=== PATIENT | male | born 1995 | race African-American/Black ===

== ENCOUNTER 2017-11-11 00:21 | Emergency (ER) | payer OTHER ==
[2017-11-11 00:38] VITALS: RESP 16
--- NOTE | 2017-11-11 01:16 | ED ---
Headache HPI - General Chief Complaint: Headache Stated Complaint: headache,high BP Time Seen by Provider: 11/11/17 00:50 Mode of arrival: ambulatory Limitations: no limitations - History of Present Illness Initial Comments: 22-year-old male patient presents to the emergency department today with complaints of intermittent headaches and fatigue. Patient states that this is been going on for the last few months. States that he usually feels this way when his blood pressure is high. He states that he stopped taking his blood pressure medicine around the end of July due to issues with getting his prescriptions. Patient denies checking his blood pressure at home. States he currently is feeling well does have a mild headache rated at a 3 out of 10 on the pain scale. He denies any blurred vision, double vision, numbness, tingling , or weakness with this. Patient states he did call into work and will need a work note. Patient denies any recent rash, fever, chills, shortness breath, chest pain, abdominal pain, nausea, vomiting, diarrhea, constipation, back pain , hematuria, dysuria, urinary urgency, urinary frequency, or any other complaints. - Related Data Previous Rx's Medication Instructions Recorded Albuterol Inhaler [Ventolin Hfa 1 - 2 puff INHALATION Q4-6H PRN #1 04/09/15 Inhaler] inhaler Albuterol Inhaler [Ventolin Hfa 1 - 2 puff INHALATION Q4-6H PRN #1 06/11/15 Inhaler] inhaler Albuterol Nebulized [Ventolin 2.5 mg INHALATION Q4H #20 nebu 06/11/15 Nebulized] predniSONE 20 mg PO BID #10 tab 06/11/15 Lisinopril [Prinivil] 5 mg PO DAILY #20 tablet 11/11/17 Allergies Allergy/AdvReac Type Severity Reaction Status Date / Time grass pollen-perennial rye, Allergy Rash/Hives Verified 06/11/15 16:03 standar [grass poll-perennial rye,std] Review of Systems ROS Statement: Those systems with pertinent positive or pertinent negative responses have been documented in the HPI. ROS Other: All systems not noted in ROS Statement are negative. Past Medical History Past Medical History: Asthma History of Any Multi-Drug Resistant Organisms: None Reported Past Surgical History: No Surgical Hx Reported Past Psychological History: Bipolar Smoking Status: Current some day smoker Past Alcohol Use History: None Reported Past Drug Use History: None Reported, Marijuana General Exam Limitations: no limitations General appearance: alert, in no apparent distress, other (This is a well- developed, well-nourished adult male patient in no acute distress. Vital signs upon presentation are temperature 97.6F, pulse 61, respirations 16, blood pressure 130/96, pulse ox 100% on room air.) Eye exam: Present: normal appearance, PERRL, EOMI. Absent: scleral icterus, conjunctival injection, periorbital swelling ENT exam: Present: normal exam, normal oropharynx, mucous membranes moist Respiratory exam: Present: normal lung sounds bilaterally. Absent: respiratory distress, wheezes, rales, rhonchi, stridor Cardiovascular Exam: Present: regular rate, normal rhythm, normal heart sounds. Absent: systolic murmur, diastolic murmur, rubs, gallop, clicks GI/Abdominal exam: Present: soft, normal bowel sounds. Absent: distended, tenderness, guarding, rebound, rigid Neurological exam: Present: alert, oriented X3, CN II-XII intact Psychiatric exam: Present: normal affect, normal mood Skin exam: Present: warm, dry, intact, normal color. Absent: rash Course Vital Signs 11/11/17 11/11/17 00:33 01:29 Temperature 97.6 F 97.9 F Pulse Rate 61 69 Respiratory 16 16 Rate Blood Pressure 130/96 133/78 O2 Sat by Pulse 100 100 Oximetry Medical Decision Making - Medical Decision Making 22-year-old male patient percents to the emergency department today for evaluation of headaches and fatigue for the last 2 months. Patient did stop taking his blood pressure medication at the end of July. Reports that he usually feels this way and his blood pressure is high. Blood pressure in the department today was in the 130s over 90s. Patient reported he did take lisinopril. States he does have an appointment with his primary care physician at the beginning of November, but did call in to work today so we need a work note. He currently states his headache is much improved at a 3 out of 10 on a pain scale. He is feeling better. We will give him a prescription for his lisinopril. He is instructed to take this and to follow-up with his primary care physician as he has planned. He is instructed to return here immediately for any new, worsening, or concerning symptoms. He verbalizes understanding and agrees with this plan. Disposition Clinical Impression: Headache Disposition: HOME SELF-CARE Condition: Good Instructions: Acute Headache (ED), Hypertension (ED) Additional Instructions: Take medications as directed. Keep your appointment with your primary care physician as you have planned. Return here immediately for any new, worsening, or concerning symptoms. Prescriptions: Lisinopril [Prinivil] 5 mg PO DAILY #20 tablet Is patient prescribed a controlled substance at discharge?: No Referrals: None,Stated [Primary Care Provider] - 1-2 days Time of Disposition: 01:15
[2017-11-11 01:30] VITALS: BP 133/78; PULSE 69; TEMP 97.9
== END 2017-11-11 01:29 | disposition home or self-care (01) ==
LOC: EC 00:21
DX: R51 Headache (principal); R53.83 Other fatigue; F17.200 Nicotine dependence, unspecified, uncomplicated; Z91.048 Other nonmedicinal substance allergy status
CPT/HCPCS: 99283

== ENCOUNTER 2023-07-18 07:55 | Emergency (ER) | payer OTHER ==
[2023-07-18] MEDS ORDERED: ONDANSETRON 4 MG/2 ML VIAL IVP STA (08:07)
[2023-07-18] MEDS ORDERED: methylPREDNISolone SOD SUCCI 125 MG/2 ML VIAL IV STA (08:07)
[2023-07-18] MEDS ORDERED: hydrALAZINE HCL 20 MG/ML 1 ML VIAL IVP STA (08:08)
[2023-07-18] MEDS ORDERED: SODIUM CHLORIDE 0.9% 1,000 ML IV ONE (08:08)
[2023-07-18 08:20] VITALS: TEMP 98.3
--- NOTE | 2023-07-18 08:20 | ED ---
General Adult HPI - General Chief complaint: Shortness of Breath Stated complaint: RUSH Time Seen by Provider: 07/18/23 08:00 Source: patient, RN notes reviewed, old records reviewed Mode of arrival: ambulatory Limitations: no limitations - History of Present Illness Initial comments: This is a 27-year-old male who has a past medical history significant for asthma. Patient states it started last night at 8:00 got worse after he went out partying. Patient states he smokes marijuana every day. Patient states he also has high blood pressure but did not take his medications. patient tried 3 breathing treatments at home and then called the ambulance. Patient received a breathing treatment in the ambulance. Patient states she is feeling better. Patient states is a little hung over from drinking too much last night. Patient denies any chest pain. Patient denies any fever chills per patient denies any abdominal pain. - Related Data Previous Rx's Medication Instructions Recorded Albuterol Inhaler [Ventolin Hfa 1 - 2 puff INHALATION Q4-6H PRN #1 04/09/15 Inhaler] inhaler Albuterol Inhaler [Ventolin Hfa 1 - 2 puff INHALATION Q4-6H PRN #1 06/11/15 Inhaler] inhaler Albuterol Nebulized [Ventolin 2.5 mg INHALATION Q4H #20 nebu 06/11/15 Nebulized] predniSONE [Deltasone] 20 mg PO BID #10 tab 06/11/15 lisinopriL [Prinivil] 5 mg PO DAILY #20 tablet 11/11/17 Albuterol Inhaler [Ventolin Hfa 2 puff INHALATION RT-QID #18 gm 07/18/23 Inhaler] Ondansetron [Zofran] 4 mg PO Q8HR PRN #10 tab 07/18/23 lisinopriL [Zestril] 10 mg PO DAILY #30 tab 07/18/23 predniSONE [Deltasone] 40 mg PO DAILY #8 tab 07/18/23 Allergies Allergy/AdvReac Type Severity Reaction Status Date / Time grass pollen-perennial rye, Allergy Rash/Hives Verified 07/18/23 08:05 standar [grass poll-perennial rye,std] Review of Systems ROS Statement: Those systems with pertinent positive or pertinent negative responses have been documented in the HPI. ROS Other: All systems not noted in ROS Statement are negative. Past Medical History Past Medical History: Asthma History of Any Multi-Drug Resistant Organisms: None Reported Past Surgical History: No Surgical Hx Reported Past Psychological History: Bipolar Smoking Status: Current every day smoker Past Alcohol Use History: None Reported Past Drug Use History: None Reported, Marijuana General Exam - General Exam Comments Initial Comments: GENERAL: Patient is well-developed and well-nourished. Patient is nontoxic and well- hydrated and is in mild distress. ENT: Neck is soft and supple. No significant lymphadenopathy is noted. Oropharynx is clear. Moist mucous membranes. Neck has full range of motion without eliciting any pain. EYES: The sclera were anicteric and conjunctiva were pink and moist. Extraocular movements were intact and pupils were equal round and reactive to light. Eyelids were unremarkable. PULMONARY: Patient some expiratory wheezing. CARDIOVASCULAR: There is a regular rate and rhythm without any murmurs gallops or rubs. Femoral pulses are equal bilaterally ABDOMEN: Soft and nontender with normal bowel sounds. SKIN: Skin is clear with no lesions or rashes and otherwise unremarkable. NEUROLOGIC: Patient is alert and oriented x3. Cranial nerves II through XII are grossly intact. Motor and sensory are also intact. Normal speech, volume and content. Symmetrical smile. MUSCULOSKELETAL: Normal extremities with adequate strength and full range of motion. LYMPHATICS: No significant lymphadenopathy is noted PSYCHIATRIC: Normal psychiatric evaluation. Limitations: no limitations Course Vital Signs 07/18/23 07/18/23 07/18/23 07:57 08:53 08:56 Temperature 98.3 F Pulse Rate 103 H 110 H 100 Respiratory 20 24 Rate Blood Pressure 172/125 163/95 O2 Sat by Pulse 100 98 Oximetry 07/18/23 07/18/23 07/18/23 09:06 09:11 09:37 Temperature Pulse Rate 100 100 115 H Respiratory 24 Rate Blood Pressure 168/97 O2 Sat by Pulse 97 Oximetry Medical Decision Making - Medical Decision Making EKG is interpreted by myself. EKG shows sinus tachycardia at 104 bpm KS interval 236 dresses 86 QT interval 345 QTC is 405. Patient's EKG shows normal depression. Was pt. sent in by a medical professional or institution (, PA, ROUGE PRESSER, urgent care, hospital, or custodial...) When possible be specific @ -No Did you speak to anyone other than the patient for history (EMS, parent, family, police, friend...)? What history was obtained from this source @ -No Did you review nursing and triage notes (agree or disagree)? Why? @ -I reviewed and agree with nursing and triage notes Were old charts reviewed (outside hosp., previous admission, EMS record, old EKG, old radiological studies, urgent care reports/EKG's, custodial records)? Report findings @ -No old charts were reviewed Differential Diagnosis (chest pain, altered mental status, abdominal pain women, abdominal pain men, vaginal bleeding, weakness, fever, dyspnea, syncope, headache, dizziness, GI bleed, back pain, seizure, CVA, palpatations, mental health, musculoskeletal)? @ -Differential Dyspnea: Coronary syndrome, arrhythmia, tamponade, asthma, COPD, pulmonary embolism, pneumonia, pneumothorax, pulmonary effusion, anaphylaxis, diabetic ketoacidosis, flailed chest, pulmonary contusion, diaphragmatic rupture, anemia, neuromuscular, this is not meant to be an all-inclusive list. EKG interpreted by me (3pts min.). @ -As above X-rays interpreted by me (1pt min.). @ -Chest x-ray showed no acute abnormality. CT interpreted by me (1pt min.). @ -None done U/S interpreted by me (1pt. min.). @ -None done What testing was considered but not performed or refused? (CT, X-rays, U/S, labs)? Why? @ -None What meds were considered but not given or refused? Why? @ -None Did you discuss the management of the patient with other professionals (professionals i.e. , PA, ROUGE PRESSER, lab, RT, psych nurse, social media sr strategy manager, student union consultant, teacher, juvenile officer, case packer)? Give summary @ -No Was smoking cessation discussed for >3mins.? @ -No Was critical care preformed (if so, how long)? @ -No Were there social determinants of health that impacted care today? How? (Homelessness, low income, unemployed, alcoholism, drug addiction, tra nsportation, low edu. Level, literacy, decrease access to med. care, [place] [facility], rehab)? @ -No Was there de-escalation of care discussed even if they declined (Discuss DNR or withdrawal of care, Hospice)? DNR status @ -No What co-morbidities impacted this encounter? (DM, HTN, Smoking, COPD, CAD, Cancer, CVA, ARF, Chemo, Hep., AIDS, mental health diagnosis, sleep apnea, morbid obesity)? @ -None Was patient admitted / discharged? Hospital course, mention meds given and route, prescriptions, significant lab abnormalities, going to OR and other pertinent info. @ -Patient came in and was wheezing quite a bit. Patient received a couple breathing treatments here as well as steroids. Patient also was nauseous because he drank too much last night and vomited a couple of times I gave the patient Zofran and Reglan eventually and fluid through the IV. I went back into reexamine the patient after he had his breathing treatments and fluid and antiemetics. Patient was sleeping when I woke him up he stated he felt much better and wanted to go home. I listened to his lungs he was still having a little expiratory wheeze but much improved compared to earlier. Patient was oxygenating 96% when I was talking to him. Undiagnosed new problem with uncertain prognosis? @ -No Drug Therapy requiring intensive monitoring for toxicity (Heparin, Nitro, Insulin, Cardizem)? @ -No Were any procedures done? @ -No Diagnosis/symptom? @ -Exacerbation of asthma Acute, or Chronic, or Acute on Chronic? @ -Acute Uncomplicated (without systemic symptoms) or Complicated (systemic symptoms)? @ -Complicated Side effects of treatment? @ -No Exacerbation, Progression, or Severe Exacerbation? @ -No Poses a threat to life or bodily function? How? (Chest pain, USA, [place], pneumonia, PE, COPD, DKA, ARF, appy, cholecystitis, CVA, Diverticulitis, Homicidal, Suicidal, threat to staff... and all critical care pts) @ -No Diagnosis/symptom? @ -Acute vomiting Acute, or Chronic, or Acute on Chronic? @ -Acute Uncomplicated (without systemic symptoms) or Complicated (systemic symptoms)? @ -Complicated Side effects of treatment? @ -none Exacerbation, Progression, or Severe Exacerbation] @ -no Poses a threat to life or bodily function? @ -no - Lab Data Result diagrams: 07/18/23 08:27 07/18/23 08:27 Lab Results 07/18/23 07/18/23 Range/Units 08:27 08:27 WBC 18.0 H (3.8-10.6) k/uL RBC 4.80 (4.30-5.90) m/uL Hgb 14.4 (13.0-17.5) gm/dL Hct 43.5 (39.0-53.0) % MCV 90.7 (80.0-100.0) fL MCH 29.9 (25.0-35.0) pg MCHC 33.0 (31.0-37.0) g/dL RDW 13.8 (11.5-15.5) % Plt Count 225 (150-450) k/uL MPV 8.0 Neutrophils % 69 % Lymphocytes % 15 % Monocytes % 6 % Eosinophils % 8 % Basophils % 0 % Neutrophils # 12.5 H (1.3-7.7) k/uL Lymphocytes # 2.7 (1.0-4.8) k/uL Monocytes # 1.1 H (0-1.0) k/uL Eosinophils # 1.4 H (0-0.7) k/uL Basophils # 0.1 (0-0.2) k/uL Sodium 143 (137-145) mmol/L Potassium 3.6 (3.5-5.1) mmol/L Chloride 101 (98-107) mmol/L Carbon Dioxide 27 (22-30) mmol/L Anion Gap 15 mmol/L BUN 17 (9-20) mg/dL Creatinine 0.78 (0.66-1.25) mg/dL Est GFR (CKD-EPI)AfAm >90 (>60 ml/min/1.73 sqM) Est GFR (CKD-EPI)NonAf >90 (>60 ml/min/1.73 sqM) Glucose 97 (74-99) mg/dL Calcium 9.2 (8.4-10.2) mg/dL Magnesium 1.8 (1.6-2.3) mg/dL Total Bilirubin 0.5 (0.2-1.3) mg/dL AST 45 (17-59) U/L ALT 43 (4-49) U/L Alkaline Phosphatase 89 (38-126) U/L Total Protein 8.4 H (6.3-8.2) g/dL Albumin 4.6 (3.5-5.0) g/dL Disposition Clinical Impression: Exacerbation of asthma, Hangover effect Disposition: HOME SELF-CARE Condition: Good Instructions (If sedation given, give patient instructions): Asthma (ED) Prescriptions: predniSONE [Deltasone] 40 mg PO DAILY #8 tab Albuterol Inhaler [Ventolin Hfa Inhaler] 2 puff INHALATION RT-QID #18 gm lisinopriL [Zestril] 10 mg PO DAILY #30 tab Ondansetron [Zofran] 4 mg PO Q8HR PRN #10 tab PRN Reason: Nausea Is patient prescribed a controlled substance at d/c from ED?: No Referrals: None,Stated [Primary Care Provider] - 1-2 days Time of Disposition: 10:48
[2023-07-18] MEDS ORDERED: IPRATROPIUM-ALBUTEROL 3 ML NEB INHALATION STA ×2 (08:50→08:51)
[2023-07-18 08:55] LABS: Basophils # (A) 0.1 k/uL (0-0.2); Basophils % (A) 0 %; Eosinophils # (A) 1.4 k/uL (0-0.7); Eosinophils % (A) 8 %; HCT 43.5 % (39.0-53.0); HGB 14.4 gm/dL (13.0-17.5); Lymphocytes # (A) 2.7 k/uL (1.0-4.8); Lymphocytes % (A) 15 %; MCH 29.9 pg (25.0-35.0); MCV 90.7 fL (80.0-100.0); Monocytes # (A) 1.1 k/uL (0-1.0); Monocytes % (A) 6 %; Neutrophils # (A) 12.5 k/uL (1.3-7.7); Neutrophils % (A) 69 %; Platelet Count 225 k/uL (150-450); RDW 13.8 % (11.5-15.5)
--- NOTE | 2023-07-18 09:04 | XR ---
EXAMINATION TYPE: XR chest 2V DATE OF EXAM: 07/18/2023 8:46 AM CLINICAL INDICATION:Male, 27 years old with history of Difficulty breathing ; [facility] COMPARISON: Chest radiographs from 06/11/2015 TECHNIQUE: XR chest 2V Frontal and lateral views of the chest. FINDINGS: Lungs/Pleura: There is no evidence of pleural effusion, focal consolidation, or pneumothorax. Pulmonary vascularity: Unremarkable. Heart/mediastinum: Cardiomediastinal silhouette is unremarkable. Musculoskeletal: No acute osseous pathology. IMPRESSION: No acute cardiopulmonary disease/process.
[2023-07-18 09:29] VITALS: RESP 24
[2023-07-18] MEDS ORDERED: METOCLOPRAMIDE 5 MG/ML 2 ML VIAL IVP STA (09:36)
[2023-07-18 10:23] LABS: ALT 43 U/L (4-49); AST 45 U/L (17-59); African American GFR (CKD) >90 (>60 ml/min/1.73 sqM); Albumin 4.6 g/dL (3.5-5.0); Alkaline Phosphatase 89 U/L (38-126); Anion Gap 15 mmol/L; Blood Urea Nitrogen 17 mg/dL (9-20); Calcium 9.2 mg/dL (8.4-10.2); Carbon Dioxide 27 mmol/L (22-30); Chloride 101 mmol/L (98-107); Glucose 97 mg/dL (74-99); Magnesium 1.8 mg/dL (1.6-2.3); Non-African American GFR(CKD) >90 (>60 ml/min/1.73 sqM); Potassium 3.6 mmol/L (3.5-5.1); Sodium 143 mmol/L (137-145); Total Bilirubin 0.5 mg/dL (0.2-1.3); Total Protein 8.4 g/dL (6.3-8.2)
[2023-07-18] MEDS ORDERED: ENALAPRILAT 1.25 MG/ML 1 ML VIAL IVP STA (10:52)
[2023-07-18 11:00] VITALS: BP 156/88; PULSE 110
== END 2023-07-18 11:18 | disposition home or self-care (01) ==
LOC: EC 07:55
DX: J45.901 Unspecified asthma with (acute) exacerbation (principal); F10.129 Alcohol abuse with intoxication, unspecified; R00.0 Tachycardia, unspecified; F17.200 Nicotine dependence, unspecified, uncomplicated; Z79.899 Other long term (current) drug therapy; Z86.59 Personal history of other mental and behavioral disorders; Z88.8 Allergy status to other drugs, medicaments and biological substances
CPT/HCPCS: 36415; 94640 ×2; 93005; 80053; 83735; 85025; 71046; 99285; 96374; 96375 ×3; 96361; J0360; J2765; J2930; J2405

== ENCOUNTER 2023-07-18 23:25 | Observation (INO) | payer OTHER ==
[2023-07-19] MEDS ORDERED: ALBUTEROL HFA INHALER INHALATION STA (00:01)
[2023-07-19] MEDS ORDERED: IPRATROPIUM-ALBUTEROL 3 ML NEB INHALATION STA (00:50)
[2023-07-19] MEDS ORDERED: ALBUTEROL NEBULIZED 2.5 MG/3 ML INHALATION STA (00:50)
[2023-07-19] MEDS ORDERED: SODIUM CHLORIDE 0.9% 1,000 ML IV ONE (00:53)
--- NOTE | 2023-07-19 02:24 | ED ---
General Adult HPI - General Chief complaint: Shortness of Breath Stated complaint: RUSH Time Seen by Provider: 07/18/23 23:29 Source: EMS Mode of arrival: EMS Limitations: no limitations - History of Present Illness Initial comments: 27-year-old male presenting to the ED with a chief complaint of dyspnea. Patient previously here earlier with asthma exacerbation. After receiving steroids and breathing treatments, patient reported that he felt well and was discharged home. Patient noted at home has no nebulizer or inhaler. Patient presenting to the ED due to recurrence of asthma exacerbation. Denies chest pain or and no abdominal pain. No other symptoms. - Related Data Previous Rx's Medication Instructions Recorded Albuterol Inhaler [Ventolin Hfa 1 - 2 puff INHALATION Q4-6H PRN #1 04/09/15 Inhaler] inhaler Albuterol Inhaler [Ventolin Hfa 1 - 2 puff INHALATION Q4-6H PRN #1 06/11/15 Inhaler] inhaler Albuterol Nebulized [Ventolin 2.5 mg INHALATION Q4H #20 nebu 06/11/15 Nebulized] predniSONE [Deltasone] 20 mg PO BID #10 tab 06/11/15 lisinopriL [Prinivil] 5 mg PO DAILY #20 tablet 11/11/17 Albuterol Inhaler [Ventolin Hfa 2 puff INHALATION RT-QID #18 gm 07/18/23 Inhaler] Ondansetron [Zofran] 4 mg PO Q8HR PRN #10 tab 07/18/23 lisinopriL [Zestril] 10 mg PO DAILY #30 tab 07/18/23 predniSONE [Deltasone] 40 mg PO DAILY #8 tab 07/18/23 Allergies Allergy/AdvReac Type Severity Reaction Status Date / Time grass pollen-perennial rye, Allergy Rash/Hives Verified 07/18/23 08:05 standar [grass poll-perennial rye,std] Review of Systems ROS Statement: Those systems with pertinent positive or pertinent negative responses have been documented in the HPI. ROS Other: All systems not noted in ROS Statement are negative. Past Medical History Past Medical History: Asthma, Hypertension History of Any Multi-Drug Resistant Organisms: None Reported Past Surgical History: No Surgical Hx Reported Past Psychological History: Bipolar Smoking Status: Current every day smoker Past Alcohol Use History: None Reported, Rare Past Drug Use History: None Reported, Marijuana General Exam Limitations: no limitations General appearance: alert, in distress Respiratory exam: Present: wheezes, accessory muscle use, other (Tachypnea) Cardiovascular Exam: Present: tachycardia GI/Abdominal exam: Present: soft Neurological exam: Present: alert, oriented X3 Skin exam: Present: warm, dry Course Vital Signs 07/18/23 07/18/23 07/19/23 23:26 23:31 00:18 Temperature 98.1 F Pulse Rate 120 H 106 H Respiratory 26 H 26 H 22 Rate Blood Pressure 161/103 140/92 O2 Sat by Pulse 97 97 Oximetry 07/19/23 07/19/23 07/19/23 00:57 01:25 01:40 Temperature 98.5 F Pulse Rate 109 H 111 H 121 H Respiratory 22 Rate Blood Pressure 127/91 O2 Sat by Pulse 93 L Oximetry Medical Decision Making - Medical Decision Making Was pt. sent in by a medical professional or institution (, PA, CARROTING MACHINE OFFBEARER, urgent care, hospital, or usp...) When possible be specific @ -No Did you speak to anyone other than the patient for history (EMS, parent, family, police, friend...)? What history was obtained from this source @ -No Did you review nursing and triage notes (agree or disagree)? Why? @ -I reviewed and agree with nursing and triage notes Were old charts reviewed (outside hosp., previous admission, EMS record, old EKG, old radiological studies, urgent care reports/EKG's, usp records)? Report findings @ -Prior visit reviewed today. For further details please see HPI. Differential Diagnosis (chest pain, altered mental status, abdominal pain women, abdominal pain men, vaginal bleeding, weakness, fever, dyspnea, syncope, headache, dizziness, GI bleed, back pain, seizure, CVA, palpatations, mental health, musculoskeletal)? @ -Differential Dyspnea: Coronary syndrome, arrhythmia, tamponade, asthma, COPD, pulmonary embolism, pneumonia, pneumothorax, pulmonary effusion, anaphylaxis, diabetic ketoacidosis, flailed chest, pulmonary contusion, diaphragmatic rupture, anemia, neuromuscular, this is not meant to be an all-inclusive list. EKG interpreted by me (3pts min.). @ -None X-rays interpreted by me (1pt min.). @ -Repeat chest x-ray ordered however at this time is pending. CT interpreted by me (1pt min.). @ -None done U/S interpreted by me (1pt. min.). @ -None done What testing was considered but not performed or refused? (CT, X-rays, U/S, labs)? Why? @ -None What meds were considered but not given or refused? Why? @ -None Did you discuss the management of the patient with other professionals (professionals i.e. DrFarzad, PA, CARROTING MACHINE OFFBEARER, lab, RT, psych nurse, marriage and family social worker, body presser, teacher, radiological defense officer, sample case porter)? Give summary @ -Case discussed with Dr. Law, who accepted admission Was smoking cessation discussed for >3mins.? @ -No Was critical care preformed (if so, how long)? @ -No Were there social determinants of health that impacted care today? How? (Homelessness, low income, unemployed, alcoholism, drug addiction, transportation, low edu. Level, literacy, decrease access to med. care, custodial, rehab)? @ -No Was there de-escalation of care discussed even if they declined (Discuss DNR or withdrawal of care, Hospice)? DNR status @ -No What co-morbidities impacted this encounter? (DM, HTN, Smoking, COPD, CAD, Cancer, CVA, ARF, Chemo, Hep., AIDS, mental health diagnosis, sleep apnea, morbid obesity)? @ -Asthma Was patient admitted / discharged? Hospital course, mention meds given and route, prescriptions, significant lab abnormalities, going to OR and other pertinent info. @ -Admission 27-year-old male seen here. Obviously today for asthma exacerbation presenting again with recurrence of asthma exacerbation. Despite multiple breathing treatments here in the ED, patient continues to have significant respiratory distress and is noted to be hypoxic in the low 90s while on room air. Secondary to this, patient will be admitted. At this time laboratory studies and repeat chest x-ray are pending. Placed on supplemental oxygen in the ED. Currently on 1 L with improvement of SpO2 to 95%. Undiagnosed new problem with uncertain prognosis? @ -No Drug Therapy requiring intensive monitoring for toxicity (Heparin, Nitro, Insulin, Cardizem)? @ -No Were any procedures done? @ -No Diagnosis/symptom? @ -Asthma exacerbation Acute, or Chronic, or Acute on Chronic? @ -Acute Uncomplicated (without systemic symptoms) or Complicated (systemic symptoms)? @ -Complicated Side effects of treatment? @ -No Exacerbation, Progression, or Severe Exacerbation? @ -Severe exacerbation Poses a threat to life or bodily function? How? (Chest pain, [place], [place], pneumonia, PE, COPD, DKA, ARF, appy, cholecystitis, CVA, Diverticulitis, Homicidal, Suicidal, threat to staff... and all critical care pts) @ -Yes, asthma exacerbation with respiratory distress and hypoxia Disposition Clinical Impression: Asthma exacerbation Disposition: ADMITTED IP TO THIS HOSP Referrals: None,Stated [Primary Care Provider] - 1-2 days Time of Disposition: 02:29
[2023-07-19] MEDS ORDERED: NALOXONE 0.4 MG/ML 1 ML VIAL IVP PRN (02:31)
[2023-07-19] MEDS ORDERED: IPRATROPIUM-ALBUTEROL 3 ML NEB INHALATION PRN (02:31)
[2023-07-19] MEDS ORDERED: ALBUTEROL NEBULIZED 2.5 MG/3 ML INHALATION PRN (02:34)
[2023-07-19] MEDS ORDERED: MORPHINE SULFATE 4 MG/ML SYRINGE IV PRN (02:36)
[2023-07-19] MEDS ORDERED: KETOROLAC 15 MG/ML 1 ML VIAL IVP PRN (02:36)
[2023-07-19] MEDS ORDERED: ACETAMINOPHEN TAB 325 MG TAB PO PRN (02:36)
[2023-07-19] MEDS: SODIUM CHLORIDE 0.9% 1,000 ML IV SCH ×2 (02:56→16:12)
[2023-07-19 02:59] LABS: VBG PH 7.44 (7.31-7.41)
[2023-07-19 02:59] LABS: Basophils % (A) 0 %; Eosinophils # (A) 0.2 k/uL (0-0.7); Eosinophils % (A) 1 %; HCT 38.8 % (39.0-53.0); Lymphocytes # (A) 1.2 k/uL (1.0-4.8); Lymphocytes % (A) 8 %; MCHC 33.5 g/dL (31.0-37.0); MCV 89.6 fL (80.0-100.0); Mean Platelet Volume 8.1; Monocytes # (A) 0.4 k/uL (0-1.0); Monocytes % (A) 3 %; Neutrophils # (A) 12.8 k/uL (1.3-7.7); Neutrophils % (A) 88 %; Platelet Count 228 k/uL (150-450); RBC 4.32 m/uL (4.30-5.90); RDW 13.9 % (11.5-15.5); WBC 14.6 k/uL (3.8-10.6)
[2023-07-19 03:17] LABS: ALT 33 U/L (4-49); African American GFR (CKD) >90 (>60 ml/min/1.73 sqM); Anion Gap 12 mmol/L; Blood Urea Nitrogen 15 mg/dL (9-20); Calcium 8.8 mg/dL (8.4-10.2); Carbon Dioxide 19 mmol/L (22-30); Chloride 105 mmol/L (98-107); Glucose 133 mg/dL (74-99); Non-African American GFR(CKD) >90 (>60 ml/min/1.73 sqM); Sodium 136 mmol/L (137-145); Total Bilirubin 0.7 mg/dL (0.2-1.3)
[2023-07-19 03:35] LABS: AST 41 U/L (17-59); Albumin 4.3 g/dL (3.5-5.0); Alkaline Phosphatase 69 U/L (38-126); Potassium 4.6 mmol/L (3.5-5.1); Total Protein 7.8 g/dL (6.3-8.2)
--- NOTE | 2023-07-19 04:01 | XR ---
EXAM: XR Chest, 2 Views CLINICAL HISTORY: difficulty breathing TECHNIQUE: Frontal and lateral views of the chest. COMPARISON: No relevant prior studies available. FINDINGS: Lungs: Unremarkable. No infiltration, atelectasis or mass density. Pleural space: Unremarkable. No pneumothorax. No pleural fluid. Heart: Unremarkable. No cardiomegaly. Mediastinum: Unremarkable. Normal mediastinal contour. Bones/joints: Unremarkable. No acute abnormalities. IMPRESSION: Negative chest x-rays.
--- NOTE | 2023-07-19 04:12 | P.HPIM ---
History of Present Illness H&P Date: 07/19/23 Chief Complaint: Shortness of breath 27-year-old male with hypertension, moderate persistent asthma Patient coming in with sudden onset shortness of breath started Wednesday morning for which he came in to the ED he received some breathing treatments started feeling better and then was sent home initially. He comes back tonight complaining of recurrent episodes of shortness of breath and wheezing he claims that his home inhalers are not helping denies any fevers chills denies any sore throat coughing denies any runny nose denies any muscle aches and IV no sick contacts denies any recent travel her hospital stay. He cannot recognize to trigger or his asthma attack. Patient admits to smoking marijuana denies tobacco smoking denies smoke exposure. Denies recent travel her hospital stay denies any history of blood clots In the ED he received some breathing treatments however he continued to be hypoxic and having some shortness of breath for which he was admitted for further care review of systems Pertinent positives as noted in HPI. All other systems were reviewed and are negative on exam Constitutional: No acute distress, conversant, pleasant Eyes: Anicteric sclerae, moist conjunctiva, Pupils equal round reactive to light ENMT: NC/AT Oropharynx clear, no erythema, or exudates Neck: Supple, no masses, or JVD No carotid bruits No thyromegaly Lungs: Decreased breath sounds with prolonged expiratory phase and wheezing Clear to percussion Normal respiratory effort, no accessory muscle use Cardiovascular: Heart regular in rate and rhythm, No murmurs, gallops, or rubs No peripheral edema Abdominal: Soft Nontender, no guarding, rebound or rigidity Abdomen moving with respiration Normoactive bowel sounds No hepatomegaly, No splenomegaly No palpable mass No abdominal wall hernia noted . Extremities: No digital cyanosis No clubbing Pedal pulses intact and symmetrical Radial pulses intact and symmetrical No calf tenderness Psychiatric: Alert and oriented to person, place and time Appropriate affect fair judgement Neuro Muscles Strength 5/5 in all 4 extremities Sensation to light touch grossly present throughout Cranial nerves II-XII grossly intact Lymphatics: no palpable cervical or supraclavicular lymph nodes Past Medical History Past Medical History: Asthma, Hypertension History of Any Multi-Drug Resistant Organisms: None Reported Past Surgical History: No Surgical Hx Reported Past Psychological History: Bipolar Smoking Status: Current every day smoker Past Alcohol Use History: None Reported, Rare Past Drug Use History: None Reported, Marijuana Medications and Allergies Home Medications Medication Instructions Recorded Confirmed Type Albuterol Inhaler [Ventolin Hfa 1 - 2 puff INHALATION Q4-6H PRN #1 04/09/15 06/11/15 Rx Inhaler] inhaler Albuterol Inhaler [Ventolin Hfa 1 - 2 puff INHALATION Q4-6H PRN #1 06/11/15 Rx Inhaler] inhaler Albuterol Nebulized [Ventolin 2.5 mg INHALATION Q4H #20 nebu 06/11/15 Rx Nebulized] predniSONE [Deltasone] 20 mg PO BID #10 tab 06/11/15 Rx lisinopriL [Prinivil] 5 mg PO DAILY #20 tablet 11/11/17 Rx Albuterol Inhaler [Ventolin Hfa 2 puff INHALATION RT-QID #18 gm 07/18/23 Rx Inhaler] Ondansetron [Zofran] 4 mg PO Q8HR PRN #10 tab 07/18/23 Rx lisinopriL [Zestril] 10 mg PO DAILY #30 tab 07/18/23 Rx predniSONE [Deltasone] 40 mg PO DAILY #8 tab 07/18/23 Rx Allergies Allergy/AdvReac Type Severity Reaction Status Date / Time grass pollen-perennial rye, Allergy Rash/Hives Verified 07/18/23 08:05 standar [grass poll-perennial rye,std] Physical Exam Vitals: Vital Signs Temp Pulse Resp BP Pulse Ox 07/19/23 02:57 105 H 16 115/96 97 07/19/23 01:40 121 H 07/19/23 01:25 111 H 07/19/23 00:57 98.5 F 109 H 22 127/91 93 L 07/19/23 00:18 106 H 22 140/92 97 07/18/23 23:31 26 H 07/18/23 23:26 98.1 F 120 H 26 H 161/103 97 Intake and Output 07/18/23 07/18/23 07/19/23 14:59 22:59 06:59 Other: Weight 53.524 kg Results CBC & Chem 7: 07/19/23 02:36 07/19/23 02:36 Labs: Abnormal Lab Results - Last 24 Hours (Table) 07/19/23 07/19/2323 Range/Units 02:36 02:36 02:37 WBC 14.6 H (3.8-10.6) k/uL Hct 38.8 L (39.0-53.0) % Neutrophils # 12.8 H (1.3-7.7) k/uL VBG pH 7.44 H (7.31-7.41) VBG pCO2 33 L (37-51) mmHg VBG HCO3 23 L (24-28) mmol/L Sodium 136 L (137-145) mmol/L Carbon Dioxide 19 L (22-30) mmol/L Creatinine 0.62 L (0.66-1.25) mg/dL Glucose 133 H (74-99) mg/dL Assessment and Plan Assessment: 37-year-old male with moderate persistent asthma hypertension coming in to the ED twice on Wednesday for shortness of breath and wheezing and chest tightness I discussed the case with the doctor and accepted the admission for acute hypoxic respiratory failure secondary to asthma exacerbation with anticipated length of stay more than 2 midnights Acute hypoxic rested failure Acute asthma exacerbation Chest x-ray no acute cardiopulmonary process Acute respiratory viral panel negative to Covid, influenza, RSV Supportive care Supplemental oxygen as needed Albuterol nebulizer every 2 hours when necessary Symbicort twice a day Claritin 10 mg by mouth daily Prednisone 40 mg by mouth daily Elevated white count 18 no fever no identifiable folks infection Gentle IV fluid hydration normal saline 75 mL per hour Blood work unremarkable showing hemoglobin 14, sodium 143 potassium 3.6. 17 creatinine 0.78 Full code DVT prophylaxis subcu 3 times a day 5000 units
[2023-07-19] MEDS: predniSONE 20 MG TAB PO SCH (08:06)
[2023-07-19] MEDS: lisinopriL 10 MG TAB PO SCH (08:06)
[2023-07-19] MEDS: LORATADINE 10 MG TAB PO SCH (08:06)
[2023-07-19] MEDS: HEPARIN SODIUM,PORCINE 5,000 UNIT/ML 1 ML VIAL SQ SCH ×3 (08:08→21:33)
[2023-07-19] MEDS ORDERED: ONDANSETRON 4 MG/2 ML VIAL IVP PRN (08:15)
[2023-07-19] MEDS ORDERED: MELATONIN 3 MG TABLET PO PRN (08:15)
[2023-07-19] MEDS: SYMBICORT 160-4.5 MCG INHALER INHALATION SCH ×2 (08:51→18:11)
[2023-07-19] MEDS: ALBUTEROL NEBULIZED 2.5 MG/3 ML INHALATION PRN (08:51)
[2023-07-19] MEDS: ALBUTEROL NEBULIZED 2.5 MG/3 ML INHALATION SCH ×3 (12:18→18:11)
[2023-07-20] MEDS: ALBUTEROL NEBULIZED 2.5 MG/3 ML INHALATION PRN (01:21)
[2023-07-20] MEDS: SODIUM CHLORIDE 0.9% 1,000 ML IV SCH ×2 (05:24→19:51)
[2023-07-20] MEDS: ALBUTEROL NEBULIZED 2.5 MG/3 ML INHALATION SCH ×4 (09:01→19:58)
[2023-07-20] MEDS: SYMBICORT 160-4.5 MCG INHALER INHALATION SCH ×2 (09:01→19:59)
[2023-07-20] MEDS: lisinopriL 10 MG TAB PO SCH (09:58)
[2023-07-20] MEDS: LORATADINE 10 MG TAB PO SCH (09:58)
[2023-07-20] MEDS: predniSONE 20 MG TAB PO SCH (09:58)
[2023-07-20] MEDS: HEPARIN SODIUM,PORCINE 5,000 UNIT/ML 1 ML VIAL SQ SCH ×3 (11:13→23:29)
--- NOTE | 2023-07-20 17:28 | P.PN ---
Subjective Progress Note Date: 07/20/23 Hospital course: Patient is a very pleasant 27-year-old male with a past medical history of hypertension and moderate persistent asthma. She presented to the emergency department on 07/19/23 secondary to sudden nausea and shortness of breath. . Patient underwent full evaluation in the emergency department and was provided with multiple nebulizer treatments. despite these treatments, pt was reported to have recurrent episodes of hypoxia and shortness of breath. Chest x-ray negati ve for acute cardiopulmonary process. CBC revealing mild leukocytosis with WBC count 14.6. BMP unremarkable. Influenza A, influenza B, RSV, and Covid were negative. Patient admitted under our services with consultation to pulmonology for asthma exacerbation. Physical exam: Patient seen and fully evaluated at bedside this morning. Patient resting comfortably. He denies having any complaints at this time. He reports his breathing is "much better this morning". Vital signs reviewed and stable. General: Nontoxic, no distress and appears stated age. Derm: Skin warm and dry, normal coloration for ethnicity. Head: Atraumatic, normocephalic and symmetric. Eyes: EOMs intact, no lid lag, and anicteric sclera Mouth: no lip lesions, mucus membranes moist Cardiovascular: regular rate and rhythm with normal S1S2, no murmur, positive posterior tibial pulses bilaterally, and cap refill < 2 seconds. Lungs: Respirations even, regular, and unlabored on room air. Lungs with equal air entry bilaterally with soft expiratory. No rhonchi, rales, or crackles noted. Abdominal: soft, nontender to palpation, no guarding, no appreciable organomegaly Ext: ROM intact. No gross muscle atrophy, no edema, no contractures Neuro: Speech clear, face symmetrical and CN II-XII grossly intact with no noted focal neuro deficits Psych: Alert and oriented to person, place, time, and situation. Appropriate and pleasant affect. Assessment and Plan of Care: 27-year-old male with moderate persistent asthma and hypertension. Currently admitted under our services for asthma exacerbation. Pulmonary was consulted. Acute hypoxic respiratory failure secondary to asthma exacerbation Acute asthma exacerbation -Chest x-ray no acute cardiopulmonary process -Respiratory viral panel negative for Covid, influenza, and RSV -Oxygenation to be administered and titrated as needed to maintain SPO2 equal to or greater than 92% -Telemetry monitoring. -Monitor Pulse-oximetry -Duonebs scheduled four times daily and as needed for SOB and/or wheezing -Encouraged Incentive Spirometry -Steroids: Prednisone 40 mg daily -Patient started on Symbicort 160/4.5 g inhaler 2 puffs twice daily. Continue Claritin 10 mg daily. -Pulmonology following, recommending continued monitoring for an additional 24 hours -Prescription sent for home nebulizer to [facility]. Data reviewed: Vital signs reviewed. Blood pressure 138/86, heart rate 87, respiratory rate 18, temp 98.0F, and SpO2 of 98% on room air. CODE STATUS: Full code DVT prophylaxis: Heparin Anticipated discharge date: With in the next [address]: Home Patient was seen independently by Nurse Pracitioner. This document was prepared using [employer] dictation software. Please allow for errors in liability claims examiner, while rare they do occur. Objective - Vital Signs Vital signs: Vital Signs Temp 98.0 F 07/20/23 07:00 Pulse 78 07/20/23 09:16 Resp 18 07/20/23 07:00 BP 138/86 07/20/23 07:00 Pulse Ox 97 07/20/23 09:03 FiO2 Intake & Output 07/19/23 07/20/23 07/20/23 18:59 06:59 18:59 Intake Total 236 Output Total 250 Balance 236 -250 Intake: Oral 236 Output: Urine 250 Other: # Voids 350 1 - Labs CBC & Chem 7: 07/19/23 02:36 07/19/23 02:36
--- NOTE | 2023-07-20 20:09 | P.CNPUL ---
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 The patient is coming in with worsening shortness of breath and chest tightness and wheezing. The viral screen was essentially negative. The white cell count of 14.6 with a hemoglobin 13. He has active cough and congestion chest tightness and wheezing. Breathing progressively got worse over the past few days. Denies having any fever or chills. No exposure to any chemicals or fumes. Does not smoke tobacco. He smokes marijuana for recreational purposes. Chest x-ray is clear. Currently on room air oxygen. He is known to have chronic asthma since childhood. No ALLER GIES. Noted as the reflux. No eczema. No nasal polyposis. Review of Systems Constitutional: Denies chills, Denies fever Eyes: denies as per HPI, denies blurred vision, denies bulging eye, denies decreased vision, denies diplopia, denies discharge, denies dry eye, denies irritation, denies itching, denies pain, denies photophobia, denies loss of peripheral vision, denies loss of vision, denies tunnel vision/blind spots Ears: deny: decreased hearing, ear discharge, earache, tinnitus Ears, nose, mouth and throat: Reports as per HPI Breasts: absent: as per HPI, gynecomastia Cardiovascular: Reports decreased exercise tolerance, Reports dyspnea on exertion Respiratory: Reports cough, Reports dyspnea, Reports wheezing Gastrointestinal: Reports as per HPI Genitourinary: Reports as per HPI Musculoskeletal: Reports as per HPI Musculoskeletal: absent: ankle pain, ankle stiffness, ankle swelling, as per HP I, elbow pain, elbow stiffness, elbow swelling, foot pain, foot stiffness, foot swelling, hand pain, hand stiffness, hand swelling, hip pain, hip stiffness, hip swelling, knee pain, knee stiffness, knee swelling, shoulder pain, shoulder stiffness, shoulder swelling, wrist pain, wrist stiffness, wrist swelling Integumentary: Reports as per HPI Neurological: Reports as per HPI Psychiatric: Reports as per HPI Endocrine: Reports as per HPI Hematologic/Lymphatic: Reports as per HPI Allergic/Immunologic: Reports as per HPI Past Medical History Past Medical History: Asthma, Hypertension History of Any Multi-Drug Resistant Organisms: None Reported Past Surgical History: No Surgical Hx Reported Past Anesthesia/Blood Transfusion Reactions: No Reported Reaction Past Psychological History: Bipolar Smoking Status: Current every day smoker Past Alcohol Use History: None Reported, Rare Past Drug Use History: None Reported, Marijuana Medications and Allergies Home Medications Medication Instructions Recorded Confirmed Type Albuterol Inhaler [Ventolin Hfa 2 puff INHALATION RT-QID PRN 07/19/23 07/19/23 History Inhaler] Allergies Allergy/AdvReac Type Severity Reaction Status Date / Time grass pollen-perennial rye, Allergy Rash/Hives Verified 07/18/23 08:05 standar [grass poll-perennial rye,std] Physical Exam Vitals: Vital Signs Temp Pulse Pulse Resp BP BP Pulse Ox 07/20/23 20:00 88 07/20/23 14:24 97.6 F 88 16 132/80 97 07/20/23 12:44 82 07/20/23 12:33 82 07/20/23 09:16 78 07/20/23 09:03 97 07/20/23 09:01 78 07/20/23 07:00 98.0 F 87 18 138/86 98 07/20/23 01:34 94 07/20/23 01:21 90 07/20/23 01:01 98.3 F 87 16 153/87 96 Intake and Output 07/20/23 07/20/23 07/20/23 06:59 14:59 22:59 Output Total 250 600 Balance -250 -600 Output: Urine 250 600 Other: # Voids 1 General: Nontoxic, no distress and appears stated age. Derm: Skin warm and dry, normal coloration for ethnicity. Head: Atraumatic, normocephalic and symmetric. Eyes: EOMs intact, no lid lag, and anicteric sclera Mouth: no lip lesions, mucus membranes moist Cardiovascular: regular rate and rhythm with normal S1S2, no murmur, positive posterior tibial pulses bilaterally, and cap refill < 2 seconds. Lungs: Respirations even, regular, and unlabored on room air. Lungs with equal air entry bilaterally with soft expiratory. No rhonchi, rales, or crackles noted. Abdominal: soft, nontender to palpation, no guarding, no appreciable organomegaly Ext: ROM intact. No gross muscle atrophy, no edema, no contractures Neuro: Speech clear, face symmetrical and CN II-XII grossly intact with no noted focal neuro deficits Psych: Alert and oriented to person, place, time, and situation. Appropriate and pleasant affect. Results - Laboratory Findings CBC and BMP: 07/19/23 02:36 07/19/23 02:36 Abnormal lab findings: Abnormal Labs 07/19/23 07/19/23 07/19/23 02:36 02:36 02:37 WBC 14.6 H Hct 38.8 L Neutrophils # 12.8 H VBG pH 7.44 H VBG pCO2 33 L VBG HCO3 23 L Sodium 136 L Carbon Dioxide 19 L Creatinine 0.62 L Glucose 133 H - Diagnostic Findings Chest x-ray: image reviewed Assessment and Plan Plan: Acute exacerbation of chronic mild intermittent/persistent bronchial asthma, no evidence of pneumonia. The routine viral screen was negative and the patient's chest x-ray showing no evidence of any pneumonia. No hypoxemia. Is actively bronchus spastic and wheezing Shortness of breath secondary to above Mild leukocytosis, nonspecific Hypertension Recreational marijuana smoking Plan Patient would likely benefit from maintenance on outpatient basis unless suggest Symbicort on a 160/4.52 puffs twice a day Continue current bronchodilators and steroids No need for antibiotics at this point in time Anticipate recovery and will start prednisone burst taper within next 24 hours Outpatient follow-up
[2023-07-21] MEDS: ALBUTEROL NEBULIZED 2.5 MG/3 ML INHALATION SCH ×3 (08:11→15:34)
[2023-07-21] MEDS: SYMBICORT 160-4.5 MCG INHALER INHALATION SCH (08:11)
[2023-07-21 08:50] VITALS: BP 133/81; RESP 14; TEMP 97.8
[2023-07-21] MEDS: LORATADINE 10 MG TAB PO SCH (09:07)
[2023-07-21] MEDS: predniSONE 20 MG TAB PO SCH (09:08)
[2023-07-21] MEDS: lisinopriL 10 MG TAB PO SCH (09:08)
[2023-07-21] MEDS: HEPARIN SODIUM,PORCINE 5,000 UNIT/ML 1 ML VIAL SQ SCH (09:13)
[2023-07-21] MEDS: SODIUM CHLORIDE 0.9% 1,000 ML IV SCH (09:36)
--- NOTE | 2023-07-21 09:52 | P.DS ---
Providers Date of admission: 07/19/23 02:50 Expected date of discharge: 07/21/23 Attending physician: Eric Law MD Consults: 07/19/23 08:16 Consult Physician Routine Consulting Provider: Rigo Manzano Reason/Comments: asthma exacerbation Do you want consulting provider notified?: Yes Primary care physician: Stated None Hospital Course: Discharge Diagnosis: Acute hypoxic respiratory failure secondary to asthma exacerbation Acute asthma exacerbation Hospital Course: Patient is a very pleasant 27-year-old male with a past medical history of hypertension and moderate persistent asthma. She presented to the emergency department on 07/19/23 secondary to sudden nausea and shortness of breath. . Patient underwent full evaluation in the emergency department and was provided with multiple nebulizer treatments. despite these treatments, pt was reported to have recurrent episodes of hypoxia and shortness of breath. Chest x-ray negative for acute cardiopulmonary process. CBC revealing mild leukocytosis with WBC count 14.6. BMP unremarkable. Influenza A, influenza B, RSV, and Covid were negative. Patient admitted under our services with consultation to pulmonology for asthma exacerbation. Patient was placed on Prednisone along with scheduled DuoNeb treatments 4 times daily and inhaled corticosteroid with Symbicort 160/4.5 mg inhaler 2 puffs twice daily. He was evaluated by pulmonology. Patient showing improvement and has good air flow with minimal soft expiratory wheezes. Patient cleared from [facility] for outpatient follow-up in the office. Medically, patient is stable for discharge at this time. Patient was provided with a nebulizer machine and prescriptions were sent for DuoNeb treatments, Ventolin inhaler, Symbicort inhaler, and prednisone taper. Patient to follow up outpatient with PCP in 1-2 days and with [facility] in 2 weeks. Patient strongly encouraged to refrain from any and all forms of inhalation with nicotine or cannabis via smoking or vaping and educated that continuing to do so will only result in further deterioration of health and recurrent asthma exacerbations. Physical exam: Patient seen and fully evaluated at bedside this morning. Patient resting comfortably. He denies having any complaints at this time and reports feeling ready to go home. Vital signs reviewed and stable. General: Nontoxic, no distress and appears stated age. Derm: Skin warm and dry, normal coloration for ethnicity. Head: Atraumatic, normocephalic and symmetric. Eyes: EOMs intact, no lid lag, and anicteric sclera Mouth: no lip lesions, mucus membranes moist Cardiovascular: regular rate and rhythm with normal S1S2, no murmur, positive posterior tibial pulses bilaterally, and cap refill < 2 seconds. Lungs: Respirations even, regular, and unlabored on room air. Lungs with good and equal air entry bilaterally with diffuse soft expiratory wheezes. No rhonchi, rales, or crackles noted. Abdominal: soft, nontender to palpation, no guarding, no appreciable organomegaly Ext: ROM intact. No gross muscle atrophy, no edema, no contractures Neuro: Speech clear, face symmetrical and CN II-XII grossly intact with no noted focal neuro deficits Psych: Alert and oriented to person, place, time, and situation. Appropriate and pleasant affect. A total of 32 minutes of time were spent preparing this complex discharge summary. Pt was discharged on 07/21/23 at 9:16 AM Patient was seen independently by Nurse Practitioner. This document was prepared using [employer] dictation software. Please allow for errors in jack prizer while rare they do occur. Patient Condition at Discharge: Stable Plan - Discharge Summary Discharge Rx Participant: No New Discharge Prescriptions: New predniSONE See Taper PO DIRECTED 12 Days #30 tab lisinopriL [Zestril] 10 mg PO DAILY 30 Days #30 tab Loratadine [Claritin] 10 mg PO DAILY 30 Days #30 tab Budesonide-Formot 160-4.5 Mcg [Symbicort 160-4.5 Mcg Inhaler] 2 puff INHALATION BID 30 Days #1 each Albuterol Nebulized [Ventolin Nebulized] 2.5 mg INHALATION RT-QID 30 Days #120 each Changed Albuterol Inhaler [Ventolin Hfa Inhaler] 2 puff INHALATION RT-QID PRN 30 Days #1 each PRN Reason: Shortness Of Breath Discharge Medication List Albuterol Inhaler [Ventolin Hfa Inhaler] 2 puff INHALATION RT-QID PRN 30 Days #1 each 07/21/23 [Rx] Albuterol Nebulized [Ventolin Nebulized] 2.5 mg INHALATION RT-QID 30 Days #120 each 07/21/23 [Rx] Budesonide-Formot 160-4.5 Mcg [Symbicort 160-4.5 Mcg Inhaler] 2 puff INHALATION BID 30 Days #1 each 07/21/23 [Rx] Loratadine [Claritin] 10 mg PO DAILY 30 Days #30 tab 07/21/23 [Rx] lisinopriL [Zestril] 10 mg PO DAILY 30 Days #30 tab 07/21/23 [Rx] predniSONE See Taper PO DIRECTED 12 Days #30 tab 07/21/23 [Rx] Follow up Appointment(s)/Referral(s): David Ferrer MD [REFERRING] - 1-2 Days Heather Hudson MD [STAFF PHYSICIAN] - 2 Weeks Patient Instructions/Handouts: Moderate and Severe Persistent Asthma (DC), How to Use a Nebulizer (DC) Activity/Diet/Wound Care/Special Instructions: Activity: As tolerated. Diet: Regular diet . Special Instructions: Strongly avoid inhalation of any nicotine or cannabis product including smoking or vaping. Thank you for allowing us to participate in your care, it was truly a pleasure having you for our patient!!! Discharge Disposition: HOME SELF-CARE
--- NOTE | 2023-07-21 14:09 | P.PN ---
Subjective Progress Note Date: 07/21/23 On today's evaluation of 07/21/2023, the patient is improved compared to yesterday. Less spastic and wheezing. The patient is currently on prednisone 40 mg by mouth daily. The patient will be discharged home on Symbicort and he will need outpatient follow-up. No significant cough or sputum production. He remains on room air oxygen. White cell count of 14.6 at time of admission. The viral screen was negative. Objective - Vital Signs Vital signs: Vital Signs Temp 97.8 F 07/21/23 07:00 Pulse 84 07/21/23 11:54 Resp 14 07/21/23 07:00 BP 133/81 07/21/23 07:00 Pulse Ox 98 07/21/23 08:14 FiO2 Intake & Output 07/20/23 07/21/23 07/21/23 18:59 06:59 18:59 Intake Total 118 Output Total 600 Balance -600 118 Intake: Oral 118 Output: Urine 600 Other: # Voids 3 - Exam The patient appeared well nourished and normally developed. Vital signs as documented. Head exam is unremarkable. No scleral icterus or corneal arcus noted. Neck is without jugular venous distension, thyromegaly, or carotid bruits. Carotid upstrokes are brisk bilaterally. Lungs are clear to auscultation and percussion. Cardiac exam reveals the PMI to be normally sized and situated. Rhythm is regular. First and second heart sounds normal. No murmurs, rubs or gallops. Abdominal exam reveals normal bowel sounds, no masses, no organomegaly and no aortic enlargement. Extremities are nonedematous and both femoral and pedal pulses are normal. - Labs CBC & Chem 7: 07/19/23 02:36 07/19/23 02:36 Assessment and Plan Plan: Acute exacerbation of chronic mild intermittent/persistent bronchial asthma, no evidence of pneumonia. The routine viral screen was negative and the patient's chest x-ray showing no evidence of any pneumonia. No hypoxemia. Is actively bronchus spastic and wheezing Shortness of breath secondary to above Mild leukocytosis, nonspecific Hypertension Recreational marijuana smoking Plan Clinically improved compared to yesterday Discharge the patient home on a prednisone burst taper starting with 40 mg to be tapered by 10 mg every 4 days Symbicort maintenance on outpatient basis Patient would likely benefit from maintenance on outpatient basis unless suggest Symbicort on a 160/4.52 puffs twice a day Albuterol rescue inhaler Outpatient follow-up
[2023-07-21 15:56] VITALS: PULSE 82
== END 2023-07-21 16:38 | disposition home or self-care (01) ==
LOC: EC 23:25 → 6NMEDSUR 07-19 02:50
PROVIDERS: ADMIT Internal Medicine; ATTEND Internal Medicine
DX: J45.901 Unspecified asthma with (acute) exacerbation (principal); I10 Essential (primary) hypertension; E11.9 Type 2 diabetes mellitus without complications; F17.200 Nicotine dependence, unspecified, uncomplicated; I25.10 Atherosclerotic heart disease of native coronary artery without angina pectoris
CPT/HCPCS: 96372 ×5; 96360; 99285; 36415; 94640 ×6; 94760 ×3; 80053; 82803; 83605; 85025; 87636; 71046; G0378 ×3; J0171; J1644; J7512 ×3

== ENCOUNTER 2023-07-30 01:34 | Emergency (ER) | payer OTHER ==
[2023-07-30 01:47] VITALS: TEMP 97.9
[2023-07-30] MEDS ORDERED: ALBUTEROL HFA INHALER INHALATION STA (02:35)
[2023-07-30] MEDS ORDERED: dexAMETHasone 2 MG TAB PO STA (03:16)
--- NOTE | 2023-07-30 03:42 | ED ---
General Adult HPI - General Chief complaint: Shortness of Breath Stated complaint: Asthma attack Time Seen by Provider: 07/30/23 01:49 Source: patient, EMS Mode of arrival: EMS Limitations: no limitations - History of Present Illness Initial comments: 27-year-old male with a past medical history significant for asthma. Patient was initially seen by me on the of last month. At this time he was admitted due to hypoxia secondary to asthma exacerbation. Patient was evaluated by pulmonology and provided prescriptions for DuoNeb, Ventolin, Symbicort, and prednisone taper. Patient also left the hospital with a Ventolin inhaler. At discharge, patient states that he was unable to afford these medications as patient notes he just moved here and recently started working and has not collected his first paycheck. 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 Chest pain. No other complaints. - Related Data Previous Rx's Medication Instructions Recorded Albuterol Inhaler [Ventolin Hfa 2 puff INHALATION RT-QID PRN 30 07/21/23 Inhaler] Days #1 each Albuterol Nebulized [Ventolin 2.5 mg INHALATION RT-QID 30 Days 07/21/23 Nebulized] #120 each Budesonide-Formot 160-4.5 Mcg 2 puff INHALATION BID 30 Days #1 07/21/23 [Symbicort 160-4.5 Mcg Inhaler] each Loratadine [Claritin] 10 mg PO DAILY 30 Days #30 tab 07/21/23 lisinopriL [Zestril] 10 mg PO DAILY 30 Days #30 tab 07/21/23 predniSONE See Taper PO DIRECTED 12 Days 07/21/23 #30 tab Allergies Allergy/AdvReac Type Severity Reaction Status Date / Time grass pollen-perennial rye, Allergy Rash/Hives Verified 07/18/23 08:05 standar [grass poll-perennial rye,std] Review of Systems ROS Statement: Those systems with pertinent positive or pertinent negative responses have been documented in the HPI. ROS Other: All systems not noted in ROS Statement are negative. Past Medical History Past Medical History: Asthma, Hypertension History of Any Multi-Drug Resistant Organisms: None Reported Past Surgical History: No Surgical Hx Reported Past Anesthesia/Blood Transfusion Reactions: No Reported Reaction Past Psychological History: Bipolar Smoking Status: Current every day smoker Past Alcohol Use History: None Reported, Rare Past Drug Use History: None Reported, Marijuana General Exam Limitations: no limitations General appearance: alert, in no apparent distress Eye exam: Present: normal appearance Neck exam: Present: normal inspection Respiratory exam: Present: wheezes (Wheezes in bilateral lung ortiz. No rales or rhonchi. No accessory muscle use.) Neurological exam: Present: alert, oriented X3 Skin exam: Present: warm, dry Course Vital Signs 07/30/23 07/30/23 01:35 02:46 Temperature 97.9 F Pulse Rate 89 85 Respiratory 20 18 Rate Blood Pressure 145/106 136/113 O2 Sat by Pulse 99 100 Oximetry Medical Decision Making - Medical Decision Making Was pt. sent in by a medical professional or institution (, PA, GRAIN TRADER, urgent care, hospital, or senior living...) When possible be specific @ -No Did you speak to anyone other than the patient for history (EMS, parent, family, police, friend...)? What history was obtained from this source @ -No Did you review nursing and triage notes (agree or disagree)? Why? @ -I reviewed and agree with nursing and triage notes Were old charts reviewed (outside hosp., previous admission, EMS record, old EKG, old radiological studies, urgent care reports/EKG's, senior living records)? Report findings @ -No old charts were reviewed Differential Diagnosis (chest pain, altered mental status, abdominal pain women, abdominal pain men, vaginal bleeding, weakness, fever, dyspnea, syncope, headache, dizziness, GI bleed, back pain, seizure, CVA, palpatations, mental health, musculoskeletal)? @ -Differential Dyspnea: Coronary syndrome, arrhythmia, tamponade, asthma, COPD, pulmonary embolism, pneumonia, pneumothorax, pulmonary effusion, anaphylaxis, diabetic ketoacidosis, flailed chest, pulmonary contusion, diaphragmatic rupture, anemia, neuromuscular, this is not meant to be an all-inclusive list. EKG interpreted by me (3pts min.). @ -None X-rays interpreted by me (1pt min.). @ -None done CT interpreted by me (1pt min.). @ -None done U/S interpreted by me (1pt. min.). @ -None done What testing was considered but not performed or refused? (CT, X-rays, U/S, labs)? Why? @ -None What meds were considered but not given or refused? Why? @ -None Did you discuss the management of the patient with other professionals (professionals i.e. , PA, GRAIN TRADER, lab, RT, psych nurse, hospice social worker, asphalt raker, teacher, correction officer head, casework supervisor)? Give summary @ -No Was smoking cessation discussed for >3mins.? @ -No Was critical care preformed (if so, how long)? @ -No Were there social determinants of health that impacted care today? How? (Homelessness, low income, unemployed, alcoholism, drug addiction, transportation, low edu. Level, literacy, decrease access to med. care, longterm, rehab)? @ -No Was there de-escalation of care discussed even if they declined (Discuss DNR or withdrawal of care, Hospice)? DNR status @ -No What co-morbidities impacted this encounter? (DM, HTN, Smoking, COPD, CAD, Cancer, CVA, ARF, Chemo, Hep., AIDS, mental health diagnosis, sleep apnea, morbid obesity)? @ -None Was patient admitted / discharged? Hospital course, mention meds given and route, prescriptions, significant lab abnormalities, going to OR and other pertinent info. @ -Discharge A 27-year-old male presenting to the ED with asthma exacerbation. Was previously seen here and provided prescriptions for DuoNeb treatments, Symbicort, and prednisone taper however patient reports he was unable to afford these. Patient was given a breathing treatment prior to arrival by EMS and reports feeling much better. At this time patient is saturating at 98-100% on room air. Patient was provided an inhaler. Patient also given a dose of dexamethasone here in the ED. Patient discharged home in stable condition. Patient states his mother will picker tender helper his prescriptions for him. Discussed return precautions with patient who verbalizes agreement. Undiagnosed new problem with uncertain prognosis? @ -No Drug Therapy requiring intensive monitoring for toxicity (Heparin, Nitro, Insulin, Cardizem)? @ -No Were any procedures done? @ -No Diagnosis/symptom? @ -Asthma exacerbation Acute, or Chronic, or Acute on Chronic? @ -Acute Uncomplicated (without systemic symptoms) or Complicated (systemic symptoms)? @ -Complicated Side effects of treatment? @ -No Exacerbation, Progression, or Severe Exacerbation? @ -No Poses a threat to life or bodily function? How? (Chest pain, [place], [place], pneumonia, PE, COPD, DKA, ARF, appy, cholecystitis, CVA, Diverticulitis, Homicidal, Suicidal, threat to staff... and all critical care pts) @ -No Disposition Clinical Impression: Asthma exacerbation Disposition: HOME SELF-CARE Condition: Good Instructions (If sedation given, give patient instructions): Asthma (ED) Additional Instructions: Please return to the Emergency Department if symptoms worsen or any other concerns. Please up prescriptions provided by pulmonology. Is patient prescribed a controlled substance at d/c from ED?: No Referrals: None,Stated [Primary Care Provider] - 1-2 days Time of Disposition: 03:50
[2023-07-30 04:21] VITALS: BP 124/97; PULSE 95; RESP 16
== END 2023-07-30 04:18 | disposition home or self-care (01) ==
LOC: EC 01:34
DX: J45.901 Unspecified asthma with (acute) exacerbation (principal); I10 Essential (primary) hypertension; F17.200 Nicotine dependence, unspecified, uncomplicated; F12.90 Cannabis use, unspecified, uncomplicated; Z91.09 Other allergy status, other than to drugs and biological substances
CPT/HCPCS: 99285; J8540

== ENCOUNTER 2023-07-30 05:25 | Emergency (ER) | payer OTHER ==
[2023-07-30] MEDS ORDERED: DEXAMETHASONE SOD PHOSPHATE 10 MG/ML 1 ML VIAL IM STA (05:36)
[2023-07-30] MEDS ORDERED: IPRATROPIUM-ALBUTEROL 3 ML NEB INHALATION STA ×2 (05:36→06:46)
[2023-07-30] MEDS ORDERED: FAMOTIDINE 20 MG TAB PO STA (05:36)
[2023-07-30] MEDS ORDERED: BENZONATATE 100 MG CAP PO STA (05:38)
--- NOTE | 2023-07-30 05:38 | ED ---
SOB HPI - General Chief Complaint: Shortness of Breath Stated Complaint: Asthma attack Time Seen by Provider: 07/30/23 05:36 Source: patient, RN notes reviewed, old records reviewed Mode of arrival: EMS Limitations: no limitations - History of Present Illness Initial Comments: This is a 27-year-old male to the emergency department for evaluation of shor tness of breath increased cough congestion, wheezing and increased shortness of breath with exertion. Patient has no significant travel history no known sick contacts no fevers. No chest pain. Patient states he is out of his home medications as he does not have money to afford his asthma medications. Patient does have a prior ER visits about an hour prior to the this visit where he was discharged MD Complaint: shortness of breath, cough, "asthma attack" -: hour(s) Severity: moderate Severity scale (1-10): 4 Consistency: constant Improves With: bronchodilators Worsens With: exertion Known History Of: asthma Context: recent URI, recent illness Associated Symptoms: cough, sputum production Treatments Prior to Arrival: none - Related Data Home Medications Medication Instructions Recorded Confirmed Budesonide-Formot 160-4.5 Mcg 2 puff INHALATION RT-BID 08/10/23 08/10/23 [Symbicort 160-4.5 Mcg Inhaler] Previous Rx's Medication Instructions Recorded Albuterol Inhaler [Ventolin Hfa 2 puff INHALATION RT-QID PRN 30 07/21/23 Inhaler] Days #1 each Albuterol Nebulized [Ventolin 2.5 mg INHALATION RT-QID 30 Days 07/21/23 Nebulized] #120 each lisinopriL [Zestril] 10 mg PO DAILY 30 Days #30 tab 07/21/23 Allergies Allergy/AdvReac Type Severity Reaction Status Date / Time grass pollen-perennial rye, Allergy Rash/Hives Verified 08/10/23 07:47 standar [grass poll-perennial rye,std] Review of Systems ROS Statement: Those systems with pertinent positive or pertinent negative responses have been documented in the HPI. ROS Other: All systems not noted in ROS Statement are negative. Past Medical History Past Medical History: Asthma, Hypertension History of Any Multi-Drug Resistant Organisms: None Reported Past Surgical History: No Surgical Hx Reported Past Anesthesia/Blood Transfusion Reactions: No Reported Reaction Past Psychological History: Bipolar Smoking Status: Current every day smoker Past Alcohol Use History: None Reported, Rare Past Drug Use History: None Reported, Marijuana General Exam Limitations: no limitations General appearance: alert, in no apparent distress, anxious Head exam: Present: atraumatic, normocephalic, normal inspection Eye exam: Present: normal appearance, PERRL, EOMI. Absent: scleral icterus, conjunctival injection, periorbital swelling ENT exam: Present: normal exam, mucous membranes moist Neck exam: Present: normal inspection. Absent: tenderness, meningismus, lymphadenopathy Respiratory exam: Present: respiratory distress, wheezes. Absent: rales, rhonchi, stridor Cardiovascular Exam: Present: regular rate, normal rhythm, normal heart sounds. Absent: systolic murmur, diastolic murmur, rubs, gallop, clicks GI/Abdominal exam: Present: soft, normal bowel sounds. Absent: distended, tenderness, guarding, rebound, rigid Extremities exam: Present: normal inspection, full ROM, normal capillary refill. Absent: tenderness, pedal edema, joint swelling, calf tenderness Back exam: Present: normal inspection Neurological exam: Present: alert, oriented X3, CN II-XII intact Psychiatric exam: Present: normal affect, normal mood Skin exam: Present: warm, dry, intact, normal color. Absent: rash Course Vital Signs 07/30/23 07/30/23 07/30/23 05:26 06:03 06:54 Temperature 98 F Pulse Rate 81 67 100 Respiratory 16 16 16 Rate Blood Pressure 152/98 O2 Sat by Pulse 100 100 97 Oximetry 07/30/23 07:22 Temperature Pulse Rate 88 Respiratory 18 Rate Blood Pressure 142/94 O2 Sat by Pulse 96 Oximetry - Reevaluation(s) Reevaluation #1: Medical records reviewed Reevaluation #2: patient symptoms are improved here in the ER Reevaluation #3: Patient informed results and questions answered Reevaluation #4: Was pt. sent in by a medical professional or institution (, PA, EMERGENCY DEPARTMENT RN, urgent care, hospital, or [facility]...) When possible be specific @ -no Did you speak to anyone other than the patient for history (EMS, parent, family, police, friend...)? What history was obtained from this source @ -no Did you review nursing and triage notes (agree or disagree)? Why? @ -agree Are old charts reviewed (outside hosp., previous admission, EMS record, old EKG, old radiological studies, urgent care reports/EKG's, [facility] records)? Report findings @ -yes Differential Diagnosis (chest pain, altered mental status, abdominal pain women, abdominal pain men, vaginal bleeding, weakness, fever, dyspnea, syncope, headache, dizziness, GI bleed, back pain, seizure, CVA, palpatations, mental health, musculoskeletal)? @ -prior EKG interpreted by me (3pts min.). @ -no X-rays interpreted by me (1pt min.). @ -yes negative for acute disease CT interpreted by me (1pt min.). @ -no U/S interpreted by me (1pt. min.). @ -no What testing was considered but not performed or refused? (CT, X-rays, U/S, labs)? Why? @ -none What meds were considered but not given or refused? Why? @ -none Did you discuss the management of the patient with other professionals (professionals i.e. , PA, EMERGENCY DEPARTMENT RN, lab, RT, psych nurse, transition social worker, ice sculptor, teacher, biological technical officer, case management rn)? Give summary @ -no Was smoking cessation discussed for >3mins.? @ -no Were there social determinants of health that impacted care today? How? (Homelessness, low income, unemployed, alcoholism, drug addiction, transportation, low edu. Level, literacy, decrease access to med. care, skilled nursing, rehab)? @ -none Was there de-escalation of care discussed even if they declined (Discuss DNR or withdrawal of care, Hospice)? DNR status @ -no What co-morbidities impacted this encounter? (DM, HTN, Smoking, COPD, CAD, Cancer, CVA, ARF, Chemo, Hep., AIDS, mental health diagnosis, sleep apnea, morbid obesity)? @ -none Was patient admitted / discharged? Hospital course, mention meds given and route, prescriptions, significant lab abnormalities, going to OR and other pertinent info. @ - 27 male to the emergency department for evaluation of asthma exacerbation, symptoms improving here in the ER feels well for discharge home Discharge Was critical care preformed (if so, how long)? @ -no Undiagnosed new problem with uncertain prognosis? @ -no Drug Therapy requiring intensive monitoring for toxicity (Heparin, Nitro, Insulin, Cardizem)? @ -no Were any procedures done? @ -no Diagnosis/symptom? @ -Asthma exacerbation Acute, or Chronic, or Acute on Chronic? @ -Acute Uncomplicated (without systemic symptoms) or Complicated (systemic symptoms)? @ -Complicated Side effects of treatment? @ -no Exacerbation, Progression, or Severe Exacerbation? @ -exacerbation Poses a threat to life or bodily function? How? (Chest pain, [place], [place], pneumonia, PE, COPD, DKA, ARF, appy, cholecystitis, CVA, Diverticulitis, Homicidal, Suicidal, threat to staff... and all critical care pts) @ -yes significant respiratory distress Reevaluation #5: 08/14/23 21:24 Differential Dyspnea: Coronary syndrome, arrhythmia, tamponade, asthma, COPD, pulmonary embolism, pne umonia, pneumothorax, pulmonary effusion, anaphylaxis, diabetic ketoacidosis, flailed chest, pulmonary contusion, diaphragmatic rupture, anemia, neuromuscular, this is not meant to be an all-inclusive list. Medical Decision Making - Medical Decision Making 27-year-old male to the emergency department with history of asthma coming in for asthma exacerbation secondary to exposure not being medications at home. Patient feels improved significantly here in the emergency department feels good for discharge home - Radiology Data Radiology results: report reviewed (CXR is negative for acute disease), image reviewed Disposition Clinical Impression: Exacerbation of asthma, Asthma with acute exacerbation Disposition: HOME SELF-CARE Condition: Good Instructions (If sedation given, give patient instructions): Asthma (ED), Bronchospasm (ED) Is patient prescribed a controlled substance at d/c from ED?: No Referrals: None,Stated [Primary Care Provider] - 1-2 days Time of Disposition: 06:30
[2023-07-30 05:52] VITALS: TEMP 98
[2023-07-30] MEDS ORDERED: predniSONE 20 MG TAB PO STA (06:46)
[2023-07-30 07:26] VITALS: BP 142/94; PULSE 88; RESP 18
--- NOTE | 2023-07-30 08:21 | XR ---
EXAMINATION TYPE: XR chest 1V DATE OF EXAM: 07/30/2023 CLINICAL HISTORY: Cough TECHNIQUE: Single frontal view of the chest is obtained. COMPARISON: Prior chest x-ray July 19, 2023 FINDINGS: There is no suspicious new focal air space opacity, pleural effusion, or pneumothorax seen . The cardiac silhouette size is stable and within normal limits. The osseous structures are intac t. IMPRESSION: No acute pulmonary infiltrate. No significant change from prior.
== END 2023-07-30 07:44 | disposition home or self-care (01) ==
LOC: EC 05:25
DX: J45.901 Unspecified asthma with (acute) exacerbation (principal); I10 Essential (primary) hypertension; F17.200 Nicotine dependence, unspecified, uncomplicated; F12.90 Cannabis use, unspecified, uncomplicated; Z86.59 Personal history of other mental and behavioral disorders; Z79.51 Long term (current) use of inhaled steroids; Z88.8 Allergy status to other drugs, medicaments and biological substances
CPT/HCPCS: 94640; 71045; 99285; 96372; J1100; J7512

== ENCOUNTER 2023-08-09 22:27 | Observation (INO) | payer OTHER ==
[2023-08-09] MEDS ORDERED: IPRATROPIUM-ALBUTEROL 3 ML NEB INHALATION STA ×3 (22:37→23:30)
[2023-08-09] MEDS ORDERED: methylPREDNISolone SOD SUCCI 125 MG/2 ML VIAL IM ONE (22:37)
[2023-08-09] MEDS ORDERED: MAGNESIUM SULFATE-D5W PMX 1 GM in DEXTROSE/WATER 1 100ML.BAG IVPB ONE (23:39)
--- NOTE | 2023-08-10 01:29 | XR ---
EXAM: XR Chest, 2 Views CLINICAL HISTORY: ITS.REASON XR Reason: RUSH TECHNIQUE: Frontal and lateral views of the chest. COMPARISON: No relevant prior studies available. FINDINGS: Lungs: No consolidation or mass. Pleural space: No effusion. Heart: No cardiomegaly. Bones/joints: No acute findings. IMPRESSION: No acute cardiopulmonary process.
[2023-08-10] MEDS ORDERED: IPRATROPIUM-ALBUTEROL 3 ML NEB INHALATION PRN (01:59)
[2023-08-10] MEDS ORDERED: NALOXONE 0.4 MG/ML 1 ML VIAL IVP PRN (01:59)
--- NOTE | 2023-08-10 02:01 | ED ---
SOB HPI - General Chief Complaint: Shortness of Breath Stated Complaint: RUSH Time Seen by Provider: 08/09/23 22:34 Source: patient, EMS Mode of arrival: EMS Limitations: no limitations - History of Present Illness Initial Comments: 27-year-old male with history of asthma presenting with chief complaint of shortness of breath. Symptoms started about an hour prior to arrival. Patient is an uncontrolled asthmatic and does not follow with PCP. He has been admitted in the past for asthma exacerbations. No history of BiPAP use. No chest pain. No recent URI-like symptoms. - Related Data Previous Rx's Medication Instructions Recorded Albuterol Inhaler [Ventolin Hfa 2 puff INHALATION RT-QID PRN 30 07/21/23 Inhaler] Days #1 each Albuterol Nebulized [Ventolin 2.5 mg INHALATION RT-QID 30 Days 07/21/23 Nebulized] #120 each Budesonide-Formot 160-4.5 Mcg 2 puff INHALATION BID 30 Days #1 07/21/23 [Symbicort 160-4.5 Mcg Inhaler] each Loratadine [Claritin] 10 mg PO DAILY 30 Days #30 tab 07/21/23 lisinopriL [Zestril] 10 mg PO DAILY 30 Days #30 tab 07/21/23 predniSONE See Taper PO DIRECTED 12 Days 07/21/23 #30 tab predniSONE 50 mg PO DAILY #5 tab 07/30/23 Allergies Allergy/AdvReac Type Severity Reaction Status Date / Time grass pollen-perennial rye, Allergy Rash/Hives Verified 08/09/23 22:32 standar [grass poll-perennial rye,std] Review of Systems ROS Statement: Those systems with pertinent positive or pertinent negative responses have been documented in the HPI. ROS Other: All systems not noted in ROS Statement are negative. Past Medical History Past Medical History: Asthma, Hypertension History of Any Multi-Drug Resistant Organisms: None Reported Past Surgical History: No Surgical Hx Reported Past Anesthesia/Blood Transfusion Reactions: No Reported Reaction Past Psychological History: Bipolar Smoking Status: Current every day smoker Past Alcohol Use History: None Reported, Rare Past Drug Use History: None Reported, Marijuana General Exam Limitations: no limitations General appearance: alert, in distress (Clearly short of breath) Head exam: Present: atraumatic, normocephalic Eye exam: Present: normal appearance Neck exam: Present: normal inspection Respiratory exam: Present: respiratory distress, wheezes, accessory muscle use Cardiovascular Exam: Present: normal rhythm, tachycardia, normal heart sounds. Absent: systolic murmur, diastolic murmur, rubs, gallop, clicks Neurological exam: Present: alert, oriented X3 Psychiatric exam: Present: normal affect, normal mood Skin exam: Present: warm, dry Course Vital Signs 08/09/23 08/09/23 08/09/23 22:29 22:53 23:02 Temperature 97.8 F Pulse Rate 109 H 96 92 Respiratory 26 H Rate Blood Pressure 158/104 O2 Sat by Pulse 98 Oximetry 08/09/23 08/09/23 08/10/23 23:06 23:46 00:04 Temperature Pulse Rate 96 89 88 Respiratory Rate Blood Pressure O2 Sat by Pulse 99 Oximetry 08/10/23 08/10/23 08/10/23 00:21 02:26 02:47 Temperature Pulse Rate 97 96 Respiratory 12 24 Rate Blood Pressure 126/83 O2 Sat by Pulse 95 Oximetry 08/10/23 02:58 Temperature Pulse Rate 90 Respiratory Rate Blood Pressure O2 Sat by Pulse Oximetry Medical Decision Making - Medical Decision Making Was pt. sent in by a medical professional or institution (, PA, FIELD CARE COORDINATOR, urgent care, hospital, or alf...) When possible be specific @ -No Did you speak to anyone other than the patient for history (EMS, parent, family, police, friend...)? What history was obtained from this source @ -No Did you review nursing and triage notes (agree or disagree)? Why? @ -I reviewed and agree with nursing and triage notes Were old charts reviewed (outside hosp., previous admission, EMS record, old EKG, old radiological studies, urgent care reports/EKG's, alf records)? Report findings @ -No old charts were reviewed Differential Diagnosis (chest pain, altered mental status, abdominal pain women, abdominal pain men, vaginal bleeding, weakness, fever, dyspnea, syncope, headache, dizziness, GI bleed, back pain, seizure, CVA, palpatations, mental health, musculoskeletal)? @ -MDM Differential Dyspnea: Coronary syndrome, arrhythmia, tamponade, asthma, COPD, pulmonary embolism, pneumonia, pneumothorax, pulmonary effusion, anaphylaxis, diabetic ketoacidosis, flailed chest, pulmonary contusion, diaphragmatic rupture, anemia, neuromuscular this is not meant to be an all-inclusive list. EKG interpreted by me (3pts min.). @ -As above X-rays interpreted by me (1pt min.). @ -chest x-ray shows no acute process CT interpreted by me (1pt min.). @ -None done U/S interpreted by me (1pt. min.). @ -None done What testing was considered but not performed or refused? (CT, X-rays, U/S, labs)? Why? @ -None What meds were considered but not given or refused? Why? @ -None Did you discuss the management of the patient with other professionals (professionals i.e. DrFarzad, PA, FIELD CARE COORDINATOR, lab, RT, psych nurse, protective services social worker, operater, teacher, restoration officer, case picker)? Give summary @ -My attending spoke with Dr. Moody for admission Was smoking cessation discussed for >3mins.? @ -No Was critical care preformed (if so, how long)? @ -No Were there social determinants of health that impacted care today? How? (Homelessness, low income, unemployed, alcoholism, drug addiction, transportation, low edu. Level, literacy, decrease access to med. care, long-term, rehab)? @ -No Was there de-escalation of care discussed even if they declined (Discuss DNR or withdrawal of care, Hospice)? DNR status @ -No What co-morbidities impacted this encounter? (DM, HTN, Smoking, COPD, CAD, Cancer, CVA, ARF, Chemo, Hep., AIDS, mental health diagnosis, sleep apnea, morbid obesity)? @ -Asthma Was patient admitted / discharged? Hospital course, mention meds given and route, prescriptions, significant lab abnormalities, going to OR and other pertinent info. @ -27-year-old male with history of asthma presenting with chief complaint of shortness of breath that started this evening. On physical exam patient is tripoding and using accessory muscles. Diffuse wheezes are heard on auscultation. Patient is treated with Solu-Medrol 125 mg and 3 DuoNeb breathing treatments. He is negative for influenza, RSV, and Covid. Chest x-ray shows no acute process. On reassessment patient is continuing to wheeze and still feels short of breath. While his oxygenation has been WNL throughout his course, he'll be admitted for asthma exacerbation due to his persistent wheezing and shortness of breath. Patient is agreeable to this plan. I discussed this case with my attending Dr. Barr Undiagnosed new problem with uncertain prognosis? @ -No Drug Therapy requiring intensive monitoring for toxicity (Heparin, Nitro, Insulin, Cardizem)? @ -No Were any procedures done? @ -No Diagnosis/symptom? @ -Asthma Exacerbation Acute, or Chronic, or Acute on Chronic? @ -Acute Uncomplicated (without systemic symptoms) or Complicated (systemic symptoms)? @ -Complicated Side effects of treatment? @ -No Exacerbation, Progression, or Severe Exacerbation? @ -Exacerbation Poses a threat to life or bodily function? How? (Chest pain, [place], [place], pneumonia, PE, COPD, DKA, ARF, appy, cholecystitis, CVA, Diverticulitis, Homicidal, Yancy cidal, threat to staff... and all critical care pts) @ -Yes - Lab Data Result diagrams: 08/10/23 02:10 08/10/23 02:10 Lab Results 08/09/23 Range/Units 00:21 Influenza Type A (PCR) Not Detected (Not Detectd) Influenza Type B (PCR) Not Detected (Not Detectd) RSV (PCR) Not Detected (Not Detectd) SARS-CoV-2 (PCR) Not Detected (Not Detectd) Disposition Clinical Impression: Asthma exacerbation Disposition: ADMITTED IP TO THIS HOSP Condition: Fair Time of Disposition: 02:01
[2023-08-10 02:20] LABS: Basophils % (A) 0 %; Eosinophils # (A) 0.4 k/uL (0-0.7); Eosinophils % (A) 3 %; HGB 13.8 gm/dL (13.0-17.5); Lymphocytes # (A) 1.5 k/uL (1.0-4.8); Lymphocytes % (A) 11 %; MCHC 32.8 g/dL (31.0-37.0); MCV 91.3 fL (80.0-100.0); Mean Platelet Volume 7.3; Monocytes # (A) 0.3 k/uL (0-1.0); Monocytes % (A) 2 %; Neutrophils # (A) 11.6 k/uL (1.3-7.7); Neutrophils % (A) 83 %; Platelet Count 282 k/uL (150-450)
[2023-08-10 02:44] LABS: ALT 55 U/L (4-49); AST 39 U/L (17-59); African American GFR (CKD) >90 (>60 ml/min/1.73 sqM); Albumin 4.1 g/dL (3.5-5.0); Alkaline Phosphatase 72 U/L (38-126); Anion Gap 6 mmol/L; Blood Urea Nitrogen 15 mg/dL (9-20); Carbon Dioxide 26 mmol/L (22-30); Chloride 104 mmol/L (98-107); Glucose 125 mg/dL (74-99); Non-African American GFR(CKD) >90 (>60 ml/min/1.73 sqM); Potassium 3.7 mmol/L (3.5-5.1); Sodium 136 mmol/L (137-145); Total Bilirubin 0.3 mg/dL (0.2-1.3); Total Protein 7.6 g/dL (6.3-8.2)
[2023-08-10 06:41] VITALS: RESP 18
[2023-08-10] MEDS: IPRATROPIUM-ALBUTEROL 3 ML NEB INHALATION SCH ×2 (08:30→12:05)
[2023-08-10] MEDS: methylPREDNISolone SOD SUCCI 125 MG/2 ML VIAL IV SCH ×2 (09:32→12:20)
[2023-08-10 12:14] VITALS: BP 110/76; TEMP 97.9
[2023-08-10 12:38] VITALS: PULSE 88
== END 2023-08-10 14:36 | disposition home or self-care (01) ==
LOC: EC 22:27 → 6NMEDSUR 08-10 02:00
PROVIDERS: ADMIT Family Medicine; ATTEND Family Medicine
DX: J45.901 Unspecified asthma with (acute) exacerbation (principal); Z53.29 Procedure and treatment not carried out because of patient's decision for other reasons; I10 Essential (primary) hypertension; F31.9 Bipolar disorder, unspecified; F17.200 Nicotine dependence, unspecified, uncomplicated; Z11.52 Encounter for screening for COVID-19; Z11.59 Encounter for screening for other viral diseases; Z79.51 Long term (current) use of inhaled steroids; Z79.52 Long term (current) use of systemic steroids; Z79.899 Other long term (current) drug therapy; Z91.048 Other nonmedicinal substance allergy status
CPT/HCPCS: 96376; 96365; 96372; 96375; 99285; 36415; 94640 ×4; 80053; 85025; 87636; 71046; G0378; J2930 ×2; J3475

== ENCOUNTER 2023-09-25 03:06 | Emergency (ER) | payer OTHER ==
[2023-09-25] MEDS: IPRATROPIUM-ALBUTEROL 3 ML NEB INHALATION STA ×3 (03:19)
[2023-09-25] MEDS: predniSONE 20 MG TAB PO STA (03:20)
--- NOTE | 2023-09-25 04:59 | ED ---
General Adult HPI - General Chief complaint: Shortness of Breath Stated complaint: RUSH Time Seen by Provider: 09/25/23 03:15 Source: patient, RN notes reviewed, old records reviewed Mode of arrival: EMS Limitations: no limitations - History of Present Illness Initial comments: Patient is a 27-year-old male who presents emergency department complaining of asthma. Is out of his albuterol at home. Has noticed worsening shortness of breath that he woke up with this evening. Noticed that with weather changes this triggers his asthma. Denies any chest pain. Denies any fevers, chills, cough. Presents for further evaluation at this time. States he has never been intubated before for his asthma. Has required admission previously for his asthma. - Related Data Home Medications Medication Instructions Recorded Confirmed Budesonide-Formot 160-4.5 Mcg 2 puff INHALATION RT-BID 08/10/23 08/10/23 [Symbicort 160-4.5 Mcg Inhaler] Previous Rx's Medication Instructions Recorded Albuterol Inhaler [Ventolin Hfa 2 puff INHALATION RT-QID PRN 30 07/21/23 Inhaler] Days #1 each Albuterol Nebulized [Ventolin 2.5 mg INHALATION RT-QID 30 Days 07/21/23 Nebulized] #120 each lisinopriL [Zestril] 10 mg PO DAILY 30 Days #30 tab 07/21/23 Albuterol Inhaler [Ventolin Hfa 2 puff INHALATION QID #8 gm 09/25/23 Inhaler] Azithromycin [Zithromax] 250 mg PO DAILY 4 Days #4 tab 09/25/23 predniSONE [Deltasone] 40 mg PO DAILY 5 Days #10 tab 09/25/23 Allergies Allergy/AdvReac Type Severity Reaction Status Date / Time grass pollen-perennial rye, Allergy Rash/Hives Verified 09/25/23 03:11 standar [grass poll-perennial rye,std] Review of Systems ROS Statement: Those systems with pertinent positive or pertinent negative responses have been documented in the HPI. Review of Systems: CONST: Denies fever EYES: Denies blurry vision ENT: Denies nasal congestion C/V: Denies Chest pain RESP: Endorses shortness of breath GI: Denies abdominal pain : Denies dysuria SKIN: Denies rash. MSK: Denies joint pain. NEURO: Denies headache ROS Other: All systems not noted in ROS Statement are negative. Past Medical History Past Medical History: Asthma, Hypertension History of Any Multi-Drug Resistant Organisms: None Reported Past Surgical History: No Surgical Hx Reported Past Anesthesia/Blood Transfusion Reactions: No Reported Reaction Past Psychological History: Bipolar Smoking Status: Current every day smoker Past Alcohol Use History: None Reported, Rare Past Drug Use History: None Reported, Marijuana General Exam - General Exam Comments Initial Comments: General: Appears in mild respiratory distress.. HEAD: Normal with no signs of head trauma. EYES: PERRLA, EOMI, conjunctiva normal, no discharge. ENT: Hearing grossly intact, normal oropharynx. RESPIRATORY: Bilateral end expiratory wheezing. Hypoxia on room air. C/V: Regular rate and rhythm. S1 and S2 auscultated, no edema, peripheral pulses 2+ and intact throughout ABD: Abd is soft, nontender, nondistended EXT: Normal range of motion, no obvious deformity SKIN: No rashes or lesions observed on exposed skin. NEURO: Alert and oriented x 4. Limitations: no limitations Course Vital Signs 09/25/23 09/25/23 09/25/23 03:11 03:20 04:16 Temperature 98.4 F Pulse Rate 91 88 86 Respiratory 22 18 Rate Blood Pressure 151/111 167/101 O2 Sat by Pulse 96 99 Oximetry 09/25/23 04:49 Temperature Pulse Rate 78 Respiratory 18 Rate Blood Pressure O2 Sat by Pulse 96 Oximetry Medical Decision Making - Medical Decision Making was pt. sent in by a medical professional or institution (, PA, INTERNATIONAL MARKETING SPECIALIST, urgent care, hospital, or usp...) When possible be specific @ -No Did you speak to anyone other than the patient for history (EMS, parent, family, police, friend...)? What history was obtained from this source @ -No Did you review nursing and triage notes (agree or disagree)? Why? @ -I reviewed and agree with nursing and triage notes Were old charts reviewed (outside hosp., previous admission, EMS record, old EKG, old radiological studies, urgent care reports/EKG's, usp records)? Report findings @ -Old charts reviewed Differential Diagnosis (chest pain, altered mental status, abdominal pain women, abdominal pain men, vaginal bleeding, weakness, fever, dyspnea, syncope, headache, dizziness, GI bleed, back pain, seizure, CVA, palpatations, mental health, musculoskeletal)? @ -Asthma, COVID, flu, pneumonia. This list is not all inclusive. EKG interpreted by me (3pts min.). @ -None done X-rays interpreted by me (1pt min.). @ -Chest x-ray shows no obvious acute cardiopulmonary process or infiltrate. CT interpreted by me (1pt min.). @ -None done U/S interpreted by me (1pt. min.). @ -None done What testing was considered but not performed or refused? (CT, X-rays, U/S, labs)? Why? @ -None What meds were considered but not given or refused? Why? @ -Discussed obtaining an IV which patient declined. Also offered IM injection of Solu-Medrol which patient declined. Did you discuss the management of the patient with other professionals (professionals i.e. , PA, INTERNATIONAL MARKETING SPECIALIST, lab, RT, psych nurse, social group worker, solid waste management engineer, teacher, commanding officer traffic division, pillowcase cutter)? Give summary @ -No Was smoking cessation discussed for >3mins.? @ -No Was critical care preformed (if so, how long)? @ -No Were there social determinants of health that impacted care today? How? (Homelessness, low income, unemployed, alcoholism, drug addiction, transportation, low edu. Level, literacy, decrease access to med. care, longterm, rehab)? @ -No Was there de-escalation of care discussed even if they declined (Discuss DNR or withdrawal of care, Hospice)? DNR status @ -No What co-morbidities impacted this encounter? (DM, HTN, Smoking, COPD, CAD, Cancer, CVA, ARF, Chemo, Hep., AIDS, mental health diagnosis, sleep apnea, morbid obesity)? @ -Asthma Was patient admitted / discharged? Hospital course, mention meds given and route, prescriptions, significant lab abnormalities, going to OR and other pertinent info. @ -Based on the patient's presentation and physical exam, presents emergency department complaining of dyspnea. Appears to be having an asthma exacerbation. We will administer prednisone orally as he declines any IV or IM medications at this time. He will also receive additional breathing treatments. Viral swabs will be obtained. Chest x-ray will be obtained. Vital signs remarkable for mild hypoxia on room air. Patient was in agreement this plan. Chest x-ray unremarkable. Viral swabs negative. On reevaluation, wheezing is improved. Patient feels comfortable going home. He will be given a prescription for albuterol, prednisone as well as azithromycin. Patient was in agreement this plan. Strict return precautions discussed. I instructed the patient to follow up with their PCP in the next 1-3 days. I explained that the patient should return to the emergency department if they experience any worsening symptoms. Strict return precautions were discussed with the patient. The patient expressed understanding of these instructions. I answered all questions that the patient had. The patient was discharged home in good condition with their prescriptions and follow up information. Undiagnosed new problem with uncertain prognosis? @ -No Drug Therapy requiring intensive monitoring for toxicity (Heparin, Nitro, Insulin, Cardizem)? @ -No Were any procedures done? @ -No Diagnosis/symptom? @ -Asthma Acute, or Chronic, or Acute on Chronic? @ -Acute on chronic Uncomplicated (without systemic symptoms) or Complicated (systemic symptoms)? @ -Complicated Side effects of treatment? @ -No Exacerbation, Progression, or Severe Exacerbation? @ -Exacerbation Poses a threat to life or bodily function? How? (Chest pain, [place], [place], pneumonia, PE, COPD, DKA, ARF, appy, cholecystitis, CVA, Diverticulitis, Homicidal, Suicidal, threat to staff... and all critical care pts) @ -Unlikely - Lab Data Lab Results 09/25/23 Range/Units 03:28 Influenza Type A (PCR) Not Detected (Not Detectd) Influenza Type B (PCR) Not Detected (Not Detectd) RSV (PCR) Not Detected (Not Detectd) SARS-CoV-2 (PCR) Not Detected (Not Detectd) Disposition Clinical Impression: Asthma Disposition: HOME SELF-CARE Condition: Good Instructions (If sedation given, give patient instructions): Asthma (ED) Prescriptions: predniSONE [Deltasone] 40 mg PO DAILY 5 Days #10 tab Albuterol Inhaler [Ventolin Hfa Inhaler] 2 puff INHALATION QID #8 gm Azithromycin [Zithromax] 250 mg PO DAILY 4 Days #4 tab Is patient prescribed a controlled substance at d/c from ED?: No Referrals: None,Stated [Primary Care Provider] - 1-2 days Forms: Area PCPs Time of Disposition: 04:57
[2023-09-25] MEDS: AZITHROMYCIN 500 MG TAB PO STA (05:05)
[2023-09-25] MEDS: ALBUTEROL HFA INHALER INHALATION STA (05:20)
--- NOTE | 2023-09-25 05:26 | XR ---
EXAMINATION TYPE: XR chest 2V DATE OF EXAM: 09/25/2023 COMPARISON: Chest x-ray August 09, 2023 HISTORY: Cough TECHNIQUE: Frontal and lateral views of the chest are obtained. FINDINGS: There is no suspicious peripheral focal air space opacity, pleural effusion, or pneumothor ax seen. The cardiac silhouette size is stable and within normal limits. The osseous structures ar e intact. IMPRESSION: No acute pulmonary infiltrate.
[2023-09-25 05:32] VITALS: BP 155/120; PULSE 68; RESP 20; TEMP 98.1
== END 2023-09-25 05:30 | disposition home or self-care (01) ==
LOC: EC 03:06
DX: J45.909 Unspecified asthma, uncomplicated (principal); I10 Essential (primary) hypertension; F17.200 Nicotine dependence, unspecified, uncomplicated; F12.90 Cannabis use, unspecified, uncomplicated; Z88.8 Allergy status to other drugs, medicaments and biological substances; Z79.51 Long term (current) use of inhaled steroids; Z86.59 Personal history of other mental and behavioral disorders; Z20.822 Contact with and (suspected) exposure to COVID-19
CPT/HCPCS: 94640 ×2; 87636; 71046; 99285; J7512

== ENCOUNTER 2023-09-30 05:51 | Observation (INO) | payer OTHER ==
--- NOTE | 2023-09-30 06:09 | ED ---
General Adult HPI - General Chief complaint: Shortness of Breath Stated complaint: SOB Time Seen by Provider: 09/30/23 05:52 Source: patient, EMS, RN notes reviewed, old records reviewed Mode of arrival: EMS Limitations: no limitations - History of Present Illness Initial comments: Is a 27-year-old male who presents emergency department as an asthma exa cerbation. He is frequently in our emergency department. Triggers include smoking which she still does. States he plans on quitting now due to frequent visits to the emergency department for similar complaints. Was admitted earlier this week for an asthma exacerbation, but left AGAINST MEDICAL ADVICE. This was on September 25. Patient presents this morning, September 29 with asthma exacerbation. Began this morning. States he was smoking again. Endorses a mild cough that is nonproductive. Endorses wheezing and shortness of breath. Has no prescriptions at home. Presents for further evaluation. Denies chest pain, abdominal pain, nausea, vomiting, fevers, sick contacts. Is normally not on oxygen. - Related Data Home Medications Medication Instructions Recorded Confirmed Budesonide-Formot 160-4.5 Mcg 2 puff INHALATION RT-BID 08/10/23 09/25/23 [Symbicort 160-4.5 Mcg Inhaler] Albuterol Nebulized [Ventolin 2.5 mg INHALATION RT-QID PRN 09/25/23 09/25/23 Nebulized] Azithromycin [Zithromax] 250 mg PO DIRECTED 09/25/23 09/25/23 predniSONE [Deltasone] 40 mg PO DIRECTED 09/25/23 09/25/23 Previous Rx's Medication Instructions Recorded Albuterol Inhaler [Ventolin Hfa 2 puff INHALATION RT-QID PRN 30 07/21/23 Inhaler] Days #1 each Allergies Allergy/AdvReac Type Severity Reaction Status Date / Time grass pollen-perennial rye, Allergy Rash/Hives Verified 09/25/23 12:34 standar [grass poll-perennial rye,std] Review of Systems ROS Statement: Those systems with pertinent positive or pertinent negative responses have been documented in the HPI. Review of Systems: CONST: Denies fever EYES: Denies blurry vision ENT: Denies nasal congestion C/V: Denies Chest pain RESP: Endorses wheezing GI: Denies abdominal pain : Denies dysuria SKIN: Denies rash. MSK: Denies joint pain. NEURO: Denies headache ROS Other: All systems not noted in ROS Statement are negative. Past Medical History Past Medical History: Asthma, Hypertension History of Any Multi-Drug Resistant Organisms: None Reported Past Surgical History: No Surgical Hx Reported Past Anesthesia/Blood Transfusion Reactions: No Reported Reaction Past Psychological History: Bipolar Smoking Status: Current every day smoker Past Alcohol Use History: None Reported, Rare Past Drug Use History: None Reported, Marijuana General Exam - General Exam Comments Initial Comments: General: Appears in no acute distress. HEAD: Normal with no signs of head trauma. EYES: EOMI ENT: Hearing grossly intact, normal oropharynx. RESPIRATORY: Tight breath sounds bilaterally with bilateral end expiratory wheezing. Increased work of breathing. C/V: Regular rate and rhythm. S1 and S2 auscultated, no edema, peripheral pulses 2+ and intact throughout ABD: Abd is soft, nontender, nondistended EXT: Normal range of motion, no obvious deformity SKIN: No rashes or lesions observed on exposed skin. NEURO: Alert and oriented x 4. Limitations: no limitations Course Vital Signs 09/30/23 09/30/23 09/30/23 05:52 06:12 06:29 Temperature 97.6 F Pulse Rate 91 92 95 Respiratory 30 H Rate Blood Pressure 133/97 O2 Sat by Pulse 100 Oximetry 09/30/23 09/30/23 06:30 06:48 Temperature Pulse Rate 96 Respiratory 22 Rate Blood Pressure 165/102 O2 Sat by Pulse 100 100 Oximetry Medical Decision Making - Medical Decision Making Was pt. sent in by a medical professional or institution (, PA, AUTOMOTIVE SERVICE WRITER, urgent care, hospital, or fpc...) When possible be specific @ -No Did you speak to anyone other than the patient for history (EMS, parent, family, police, friend...)? What history was obtained from this source @ -No Did you review nursing and triage notes (agree or disagree)? Why? @ -I reviewed and agree with nursing and triage notes Were old charts reviewed (outside hosp., previous admission, EMS record, old EKG, old radiological studies, urgent care reports/EKG's, fpc records)? Report findings @ -Old charts reviewed Differential Diagnosis (chest pain, altered mental status, abdominal pain women, abdominal pain men, vaginal bleeding, weakness, fever, dyspnea, syncope, headache, dizziness, GI bleed, back pain, seizure, CVA, palpatations, mental health, musculoskeletal)? @ -COVID, flu, RSV, pneumonia, asthma. This list is not all inclusive. EKG interpreted by me (3pts min.). @ -None done X-rays interpreted by me (1pt min.). @ -X-ray reveals no obvious acute cardiopulmonary process. CT interpreted by me (1pt min.). @ -None done U/S interpreted by me (1pt. min.). @ -None done What testing was considered but not performed or refused? (CT, X-rays, U/S, labs)? Why? @ -None What meds were considered but not given or refused? Why? @ -None Did you discuss the management of the patient with other professionals (professionals i.e. , PA, AUTOMOTIVE SERVICE WRITER, lab, RT, psych nurse, social economist, divorce lawyer, teacher, certified juvenile probation officer, field nurse case manager)? Give summary @ -Initially offer the patient to the [facility] hospitalist group TERRY Zaidi, however was declined as patient left AMA and they recommended [facility]. Patient will be admitted to [facility] physician group Dr. Mcbride, who accepted the admission. Was smoking cessation discussed for >3mins.? @ -Yes Was critical care preformed (if so, how long)? @ -No Were there social determinants of health that impacted care today? How? (Homelessness, low income, unemployed, alcoholism, drug addiction, transportation, low edu. Level, literacy, decrease access to med. care, senior care, rehab)? @ -No Was there de-escalation of care discussed even if they declined (Discuss DNR or withdrawal of care, Hospice)? DNR status @ -No What co-morbidities impacted this encounter? (DM, HTN, Smoking, COPD, CAD, Cancer, CVA, ARF, Chemo, Hep., AIDS, mental health diagnosis, sleep apnea, mo rbid obesity)? @ -Asthma Was patient admitted / discharged? Hospital course, mention meds given and route, prescriptions, significant lab abnormalities, going to OR and other pertinent info. @ -Patient presents with what appears to be an asthma exacerbation. Received 1 albuterol breathing treatment on the way to the hospital. Is still dyspneic, with wheezing. Patient has increased work of breathing. Patient is saturating well on 4 L nasal cannula which will be weaned following additional breathing treatments here. He was in agreement this plan. Will administer IV fluids, magnesium, IV Solu-Medrol. Chest x-ray, viral swabs, basic labs will be obtained. Patient was recently admitted within the last week for similar complaints however patient left AMA. States he has no medications at home. Chest x-ray reveals no obvious acute cardiopulmonary process. Patient's laboratory studies are relatively unremarkable. Viral swabs are negative. On reevaluation after multiple breathing treatments, patient is still wheezy. Tightness in his lungs has improved. Increased work of breathing has improved as well. We are continuing to wean his oxygen requirements down as well. Due to the degree of wheezing as well as increased work of breathing I did recommend admission to the hospital. He was in agreement this plan. Pulmonology will be consulted. Will continue with breathing treatments as well as IV steroids. Patient was in agreement this plan. Currently on 2 L nasal cannula for comfort at this time. Is saturating 100%. Patient is still wheezing in the lung ortiz. Initially offer the patient to the [facility] hospitalist group TERRY Zaidi, however was declined as patient left AMA and they recommended admission [facility] Patient will be admitted to [facility] physician group Dr. Mcbride, who accepted the admission. Undiagnosed new problem with uncertain prognosis? @ -No Drug Therapy requiring intensive monitoring for toxicity (Heparin, Nitro, Insulin, Cardizem)? @ -No Were any procedures done? @ -No Diagnosis/symptom? @ -Asthma Acute, or Chronic, or Acute on Chronic? @ -Acute Uncomplicated (without systemic symptoms) or Complicated (systemic symptoms)? @ -Complicated Side effects of treatment? @ -No Exacerbation, Progression, or Severe Exacerbation? @ -Exacerbation Poses a threat to life or bodily function? How? (Chest pain, USA, MA, pneumonia, PE, COPD, DKA, ARF, appy, cholecystitis, CVA, Diverticulitis, Homicidal, Suicidal, threat to staff... and all critical care pts) @ -Yes Diagnosis/symptom? @ -Tobacco dependence Acute, or Chronic, or Acute on Chronic? @ -Acute Uncomplicated (without systemic symptoms) or Complicated (systemic symptoms)? @ -Uncomplicated Side effects of treatment? @ -None Exacerbation, Progression, or Severe Exacerbation] @ -No Poses a threat to life or bodily function? @ -No - Lab Data Result diagrams: 09/30/23 06:01 09/30/23 06:01 Lab Results 09/30/23 09/30/23 09/30/23 Range/Units 06:01 06:01 06:01 WBC 9.9 (3.8-10.6) k/uL RBC 4.83 (4.30-5.90) m/uL Hgb 14.5 (13.0-17.5) gm/dL Hct 44.7 (39.0-53.0) % MCV 92.5 (80.0-100.0) fL MCH 30.0 (25.0-35.0) pg MCHC 32.5 (31.0-37.0) g/dL RDW 14.1 (11.5-15.5) % Plt Count 220 (150-450) k/uL MPV 8.1 Neutrophils % 37 % Lymphocytes % 44 % Monocytes % 6 % Eosinophils % 11 % Basophils % 1 % Neutrophils # 3.6 (1.3-7.7) k/uL Lymphocytes # 4.3 (1.0-4.8) k/uL Monocytes # 0.6 (0-1.0) k/uL Eosinophils # 1.1 H (0-0.7) k/uL Basophils # 0.1 (0-0.2) k/uL Sodium 139 (137-145) mmol/L Potassium 5.0 (3.5-5.1) mmol/L Chloride 107 (98-107) mmol/L Carbon Dioxide 25 (22-30) mmol/L Anion Gap 7 mmol/L BUN 21 H (9-20) mg/dL Creatinine 0.85 (0.66-1.25) mg/dL Est GFR (CKD-EPI)AfAm >90 (>60 ml/min/1.73 sqM) Est GFR (CKD-EPI)NonAf >90 (>60 ml/min/1.73 sqM) Glucose 94 (74-99) mg/dL Calcium 8.8 (8.4-10.2) mg/dL Total Bilirubin 0.6 (0.2-1.3) mg/dL AST 33 (17-59) U/L ALT 22 (4-49) U/L Alkaline Phosphatase 54 (38-126) U/L Total Protein 7.6 (6.3-8.2) g/dL Albumin 4.2 (3.5-5.0) g/dL Influenza Type A (PCR) Not Detected (Not Detectd) Influenza Type B (PCR) Not Detected (Not Detectd) RSV (PCR) Not Detected (Not Detectd) SARS-CoV-2 (PCR) Not Detected (Not Detectd) Disposition Clinical Impression: Acute asthma exacerbation, Tobacco dependence Disposition: ADMITTED IP TO THIS HOSP Condition: Stable Referrals: None,Stated [Primary Care Provider] - 1-2 days Time of Disposition: 06:53
[2023-09-30] MEDS: methylPREDNISolone SOD SUCCI 125 MG/2 ML VIAL IV STA (06:10)
[2023-09-30] MEDS: IPRATROPIUM-ALBUTEROL 3 ML NEB INHALATION STA ×3 (06:11→07:57)
[2023-09-30 06:12] LABS: Basophils # (A) 0.1 k/uL (0-0.2); Basophils % (A) 1 %; Eosinophils # (A) 1.1 k/uL (0-0.7); Eosinophils % (A) 11 %; HCT 44.7 % (39.0-53.0); HGB 14.5 gm/dL (13.0-17.5); Lymphocytes # (A) 4.3 k/uL (1.0-4.8); Lymphocytes % (A) 44 %; MCHC 32.5 g/dL (31.0-37.0); MCV 92.5 fL (80.0-100.0); Mean Platelet Volume 8.1; Monocytes # (A) 0.6 k/uL (0-1.0); Monocytes % (A) 6 %; Neutrophils # (A) 3.6 k/uL (1.3-7.7); Neutrophils % (A) 37 %; Platelet Count 220 k/uL (150-450); RBC 4.83 m/uL (4.30-5.90); RDW 14.1 % (11.5-15.5); WBC 9.9 k/uL (3.8-10.6)
[2023-09-30] MEDS: MAGNESIUM SULFATE-D5W PMX 1 GM in DEXTROSE/WATER 1 100ML.BAG IVPB ONE (06:12)
[2023-09-30] MEDS: SODIUM CHLORIDE 0.9% 1,000 ML IV STA ×2 (06:13→07:02)
[2023-09-30 06:31] LABS: ALT 22 U/L (4-49); AST 33 U/L (17-59); African American GFR (CKD) >90 (>60 ml/min/1.73 sqM); Albumin 4.2 g/dL (3.5-5.0); Alkaline Phosphatase 54 U/L (38-126); Anion Gap 7 mmol/L; Blood Urea Nitrogen 21 mg/dL (9-20); Calcium 8.8 mg/dL (8.4-10.2); Carbon Dioxide 25 mmol/L (22-30); Chloride 107 mmol/L (98-107); Glucose 94 mg/dL (74-99); Non-African American GFR(CKD) >90 (>60 ml/min/1.73 sqM); Sodium 139 mmol/L (137-145); Total Bilirubin 0.6 mg/dL (0.2-1.3); Total Protein 7.6 g/dL (6.3-8.2)
--- NOTE | 2023-09-30 06:56 | XR ---
EXAM: XR Chest, 2 Views CLINICAL HISTORY: ITS.REASON XR Reason: cough TECHNIQUE: Frontal and lateral views of the chest. COMPARISON: Single view of the chest September 25, 2023 IMPRESSION: 1. Mildly hyperinflated lungs which may be due to inspiratory effort. Otherwise, no acute cardiopulmonary abnormality.
[2023-09-30] MEDS ORDERED: NALOXONE 0.4 MG/ML 1 ML VIAL IV PRN (07:27)
[2023-09-30] MEDS: hydrALAZINE HCL 25 MG TAB PO PRN (08:36)
--- NOTE | 2023-09-30 11:07 | P.HPIM ---
History of Present Illness H&P Date: 09/30/23 Chief Complaint: Dyspnea 27-year-old with medical history of asthma presented for evaluation of dyspnea. Patient says that his dyspnea started again this morning and did not improve despite his rescue inhaler. He was recently admitted for similar complaints and left AGAINST MEDICAL ADVICE because he had kids to take care of at home. Unfortunately, his symptoms not completely resolved and he returns today for ongoing management of dyspnea. He denies fevers, chills, nausea, vomiting. He denies chest pain, palpitations, syncope. He denies abdominal pain. He denies numbness/weakness of extremities. Upon evaluation, patient was afebrile, 158/102, heart rate 100, 98% on 2 L nasal cannula. CBC did demonstrate mildly elevated eosinophils at 1.1. Basic metabolic panel was unremarkable. Influenza A, B, RSV, COVID were negative. Liver function test are unremarkable. Chest x-ray is personally interpreted, shows normal-sized heart, clear parenchyma bilaterally without any opacities or consolidations. Patient was started on Solu-Medrol, nebulizers, Singulair and admitted to observation. All Systems reviewed and pertinent positives and negatives noted in HPI, all other symptoms are negative Gen: in no apparent distress, resting comfortably in bed Eyes: PERRL, no scleral injection or icterus HENT: normocephalic, atraumatic, good hearing acuity, moist mucous membranes Neck: no tracheal deviation, full range of motion Resp: good air exchange, breathing comfortably with no accessory muscle use, no tactile fremitus, diffuse end expiratory wheezing CVS: good distal perfusion x 4, no pitting edema GI: soft, NTTP, ND, no hepatosplenomegaly : no suprapubic tenderness, no CVAT, rodríguez catheter not present MSK: no clubbing, no cyanosis, no noted contractures of extremities Skin: no noted rashes, petechiae; temperature of skin is appropriate Neuro: moving all extremities without signs of weakness, CN II-XII intact Psych: cooperative, euthymic mood, insight and judgment intact Labs and imaging as above Assessment/plan: Asthma exacerbation Acute hypoxemic respiratory failure -Admit to observation -Solu-Medrol 60 mg IV every 6 hours -Montelukast 10 mg p.o. nightly -DuoNebs scheduled and as needed -Budesonide/formoterol twice daily Hypertensive urgency -Likely worsened by steroid indication -Hydralazine 25 mg 4 times daily as needed for SBP greater than 160 or DBP greater than 100 -Outpatient follow-up to determine need for initiation of long-term antihypertensives -Patient needs to be established with a primary care physician upon discharge Patient is full code Past Medical History Past Medical History: Asthma, Hypertension History of Any Multi-Drug Resistant Organisms: None Reported Past Surgical History: No Surgical Hx Reported Past Anesthesia/Blood Transfusion Reactions: No Reported Reaction Past Psychological History: Bipolar Smoking Status: Current every day smoker Past Alcohol Use History: None Reported, Rare Past Drug Use History: None Reported, Marijuana Medications and Allergies Home Medications Medication Instructions Recorded Confirmed Type No Known Home Medications 09/30/23 09/30/23 History Allergies Allergy/AdvReac Type Severity Reaction Status Date / Time grass pollen-perennial rye, Allergy Rash/Hives Verified 09/30/23 07:46 standar [grass poll-perennial rye,std] Physical Exam Osteopathic Statement: *. No significant issues noted on an osteopathic structural exam other than those noted in the History and Physical/Consult. Vitals: Vital Signs Temp Pulse Pulse Resp BP BP Pulse Ox 09/30/23 09:05 99.1 F 100 17 158/102 98 09/30/23 08:39 99 F 09/30/23 08:00 84 22 149/110 100 09/30/23 07:57 89 09/30/23 07:30 93 22 153/115 100 09/30/23 06:48 96 22 165/102 100 09/30/23 06:30 100 09/30/23 06:29 95 09/30/23 06:12 92 09/30/23 05:52 97.6 F 91 30 H 133/97 100 Intake and Output 09/29/23 09/30/23 09/30/23 22:59 06:59 14:59 Intake Total 100 Balance 100 Intake: Oral 100 Other: Weight 56.699 kg 56.699 kg Results CBC & Chem 7: 09/30/23 06:01 09/30/23 06:01 Labs: Abnormal Lab Results - Last 24 Hours (Table) 09/30/23 09/30/23 Range/Units 06:01 06:01 Eosinophils # 1.1 H (0-0.7) k/uL BUN 21 H (9-20) mg/dL Thrombosis Risk Factor Assmnt - Choose All That Apply Any of the Below Risk Factors Present?: No Other Risk Factors: No Thrombosis Risk Factor Assessment Level: Very Low Risk
[2023-09-30] MEDS: IPRATROPIUM-ALBUTEROL 3 ML NEB INHALATION SCH (13:06)
--- NOTE | 2023-09-30 13:37 | P.CNPUL ---
History of Present Illness Consult date: 09/30/23 Requesting physician: Renu Higgins Reason for consult: dyspnea, cough, asthma Chief complaint: Shortness of breath, cough, wheezing History of present illness: This is a pleasant 27-year-old male patient with a known history of mild intermittent chronic bronchial asthma. He also has chronic and ongoing tobacco dependence. Occasional marijuana use. Bipolar disorder. He presents to the emergency room early this morning with a 2 to 3-day history of increasing shortness of breath, cough and congestion. Some chest tightness and wheezing. He has been maintained on a albuterol rescue inhaler in the outpatient setting. Chest x-ray reveals mildly hyperinflated lungs. No acute pulmonary process. White count 9.9. Hemoglobin 14.5. Platelets 220. Sodium 139. Potassium 5.0. Bicarb 25. BUN 21. Creatinine 0.5. Viral screen negative. He is seen today in consultation in the emergency department. He is currently sitting up on a stretcher. Awake and alert in no acute distress. He does have some dyspnea with exertion dyspnea with conversation. Still somewhat bronchospastic and wheezing. He is maintaining good O2 saturations in the upper 90s on 2 L/min per nasal cannula. Review of Systems REVIEW OF SYSTEMS: CONSTITUTIONAL: Denies any recent significant weight loss or weight gain. EYES: Denies change in vision. EARS, NOSE, MOUTH, THROAT: Denies headaches, denies sore throat. CARDIOVASCULAR: Denies chest pain, palpitations or syncopal episodes. RESPIRATORY: Positive for shortness of breath, cough, congestion no hemoptysis. GASTROINTESTINAL: Denies change in appetite, denies abdominal pain GENITOURINARY: Denies hematuria, denies infections. MUSKULOSKELETAL: Denies pain, denies swelling. INTEGUMENTARY: Denies rash, denies eczema. NEUROLOGICAL: Denies recent memory loss, no recent seizure activity. PSYCHIATRIC: Denies anxiety, denies depression. HEMATOLOGIC/LYMPHATIC: Denies anemia, denies enlarged lymph nodes. Past Medical History Past Medical History: Asthma, Hypertension History of Any Multi-Drug Resistant Organisms: None Reported Past Surgical History: No Surgical Hx Reported Past Anesthesia/Blood Transfusion Reactions: No Reported Reaction Past Psychological History: Bipolar Smoking Status: Current every day smoker Past Alcohol Use History: None Reported, Rare Past Drug Use History: None Reported, Marijuana Medications and Allergies Home Medications Medication Instructions Recorded Confirmed Type No Known Home Medications 09/30/23 09/30/23 History Allergies Allergy/AdvReac Type Severity Reaction Status Date / Time grass pollen-perennial rye, Allergy Rash/Hives Verified 09/30/23 07:46 standar [grass poll-perennial rye,std] Physical Exam Vitals: Vital Signs Temp Pulse Pulse Resp BP BP Pulse Ox 09/30/23 13:18 92 09/30/23 13:06 92 09/30/23 11:19 20 09/30/23 09:05 99.1 F 100 17 158/102 98 09/30/23 08:39 99 F 09/30/23 08:00 84 22 149/110 100 09/30/23 07:57 89 09/30/23 07:30 93 22 153/115 100 09/30/23 06:48 96 22 165/102 100 09/30/23 06:30 100 09/30/23 06:29 95 09/30/23 06:12 92 09/30/23 05:52 97.6 F 91 30 H 133/97 100 Intake and Output 09/29/23 09/30/23 09/30/23 22:59 06:59 14:59 Intake Total 100 Balance 100 Intake: Oral 100 Other: Weight 56.699 kg 56.699 kg GENERAL EXAM: Alert, pleasant, thin 27-year-old male, on 2 L nasal cannula, fairly comfortable in no apparent distress. HEAD: Normocephalic. EYES: Normal reaction of pupils, equal size. NOSE: Clear with pink turbinates. THROAT: No erythema or exudates. NECK: No masses, no JVD. CHEST: No chest wall deformity. LUNGS: Equal air entry with bilateral wheezing, diminished. CVS: S1 and S2 normal with no audible murmur, regular rhythm. ABDOMEN: No hepatosplenomegaly, normal bowel sounds, no guarding or rigidity. SPINE: No scoliosis or deformity SKIN: No rashes CENTRAL NERVOUS SYSTEM: No focal deficits, tone is normal in all 4 extremities. EXTREMITIES: There is no peripheral edema. No clubbing, no cyanosis. Peripheral pulses are intact. Results - Laboratory Findings CBC and BMP: 09/30/23 06:01 09/30/23 06:01 Abnormal lab findings: Abnormal Labs 09/30/23 09/30/23 06:01 06:01 Eosinophils # 1.1 H BUN 21 H - Diagnostic Findings Chest x-ray: image reviewed Assessment and Plan Assessment: Acute exacerbation of chronic mild intermittent bronchial asthma. Chest x-ray shows no acute process. Viral screen negative Chronic and ongoing tobacco dependence History of marijuana use History of bipolar disorder Plan: The patient was seen and evaluated Chest x-ray, labs and medications reviewed Add DuoNeb ventilations 4 times daily and as needed Add Pulmicort and Perforomist inhalations Add Solu-Medrol 60 mg every 6 hours Add Singulair Continue saline at 75 MLS per hour Educated regarding complete smoking cessation We will continue to follow and make further recommendations based on his clinical status I have personally seen and examined the patient, performed the documentation and the assessment and plan as written. Number of minutes spent on the visit: 20.
[2023-09-30] MEDS: methylPREDNISolone SOD SUCCI 125 MG/2 ML VIAL IV SCH (14:27)
[2023-09-30] MEDS ORDERED: methylPREDNISolone SOD SUCCI 40 MG/ML 1 ML VIAL IV SCH (16:00)
[2023-09-30 17:46] LABS: African American GFR (CKD) >90 (>60 ml/min/1.73 sqM); Anion Gap 15 mmol/L; Blood Urea Nitrogen 17 mg/dL (9-20); Calcium 9.6 mg/dL (8.4-10.2); Carbon Dioxide 21 mmol/L (22-30); Chloride 101 mmol/L (98-107); Glucose 139 mg/dL (74-99); Non-African American GFR(CKD) >90 (>60 ml/min/1.73 sqM); Potassium 4.4 mmol/L (3.5-5.1); Sodium 137 mmol/L (137-145)
[2023-09-30] MEDS: BUDESONIDE 1 MG/2 ML NEBU INHALATION SCH (20:07)
[2023-09-30] MEDS: FORMOTEROL FUMARATE 20 MCG/2 ML NEBU INHALATION SCH (20:07)
[2023-09-30] MEDS: MONTELUKAST 10 MG TAB PO SCH (20:11)
[2023-09-30] MEDS: IPRATROPIUM-ALBUTEROL 3 ML NEB INHALATION PRN (23:35)
[2023-10-01 08:21] VITALS: BP 148/83; RESP 16; TEMP 98.4
[2023-10-01 09:02] LABS: Blood Urea Nitrogen 19.3 mg/dL (9.0-27.0); Carbon Dioxide 21.7 mmol/L (21.6-31.8); Chloride 101 mmol/L (96-109); Glucose 155 mg/dL (70-110); Potassium 4.7 mmol/L (3.5-5.5); Sodium 138 mmol/L (135-145)
[2023-10-01 09:03] LABS: ALT 20 U/L (10-49); AST 17 U/L (14-35); Albumin 4.7 g/dL (3.8-4.9); Albumin/Globulin Ratio 1.47 Ratio (1.60-3.17); Alkaline Phosphatase 62 U/L (41-126); Calcium 10.3 mg/dL (8.7-10.3); Globulin 3.2 g/dL (1.6-3.3); Total Bilirubin 0.4 mg/dL (0.3-1.2); Total Protein 7.9 g/dL (6.2-8.2)
[2023-10-01 11:14] LABS: Basophils # (A) 0.01 X 10*3/uL (0.00-0.10); Basophils % (A) 0.1 %; Eosinophils # (A) 0 X 10*3/uL (0.04-0.35); Eosinophils % (A) 0 %; HCT 43.9 % (39.6-50.0); HGB 14.8 g/dL (13.0-17.0); Lymphocytes # (A) 1.66 X 10*3/uL (0.90-5.00); Lymphocytes % (A) 11.6 %; MCH 29.8 pg (27.0-32.0); MCHC 33.7 g/dL (32.0-37.0); MCV 88.3 FL (80.0-97.0); Monocytes # (A) 0.84 X 10*3/uL (0.20-1.00); Monocytes % (A) 5.9 %; NRBC Per 100 WBC 0 X 10*3/uL (0.00-0.01); Neutrophils # (A) 11.72 X 10*3/uL (1.80-7.70); Neutrophils % (A) 81.8 %; Platelet Count 293 X 10*3/uL (140-440); RBC 4.97 X 10*6/uL (4.40-5.60); RDW 14.6 % (11.5-14.5); WBC 14.31 X 10*3/uL (4.50-10.00)
--- NOTE | 2023-10-01 11:39 | P.PN ---
Subjective Progress Note Date: 10/01/23 This is a pleasant 27-year-old male patient with a known history of mild intermittent chronic bronchial asthma. He also has chronic and ongoing tobacco dependence. Occasional marijuana use. Bipolar disorder. He presents to the emergency room early this morning with a 2 to 3-day history of increasing s hortness of breath, cough and congestion. Some chest tightness and wheezing. He has been maintained on a albuterol rescue inhaler in the outpatient setting. Chest x-ray reveals mildly hyperinflated lungs. No acute pulmonary process. White count 9.9. Hemoglobin 14.5. Platelets 220. Sodium 139. Potassium 5.0. Bicarb 25. BUN 21. Creatinine 0.5. Viral screen negative. He is seen today in consultation in the emergency department. He is currently sitting up on a stretcher. Awake and alert in no acute distress. He does have some dyspnea with exertion dyspnea with conversation. Still somewhat bronchospastic and wheezing. He is maintaining good O2 saturations in the upper 90s on 2 L/min per nasal cannula. The patient is seen today October 01, 2023 in follow-up on the regular medical floor. He is awake and alert in no acute distress. He is feeling quite a bit better today compared to yesterday. He is maintaining O2 saturations in the 90s on room air. White count 14.3. Hemoglobin 14.8. Sodium 138. Potassium 4.7. Bicarb 22. BUN 19. Creatinine 1.0. Glucose 155. He is continued on DuoNeb ventilations, Pulmicort and perform scintillations, Solu-Medrol and Singulair. Objective - Vital Signs Vital signs: Vital Signs Temp 98.4 F 10/01/23 07:25 Pulse 110 H 10/01/23 11:00 Resp 16 10/01/23 07:25 BP 148/83 10/01/23 07:25 Pulse Ox 99 10/01/23 11:00 FiO2 Intake & Output 09/30/23 10/01/23 10/01/23 18:59 06:59 18:59 Intake Total 100 118 Output Total 200 Balance -100 118 Weight 56.699 kg Intake: Oral 100 118 Output: Urine 200 Other: # Voids 1 - Exam GENERAL EXAM: Alert, pleasant 27-year-old male, on room air, comfortable in no apparent distress. HEAD: Normocephalic. EYES: Normal reaction of pupils, equal size. NOSE: Clear with pink turbinates. THROAT: No erythema or exudates. NECK: No masses, no JVD. CHEST: No chest wall deformity. LUNGS: Equal air entry with faint end expiratory wheeze. CVS: S1 and S2 normal with no audible murmur, regular rhythm. ABDOMEN: No hepatosplenomegaly, normal bowel sounds, no guarding or rigidity. SPINE: No scoliosis or deformity SKIN: No rashes CENTRAL NERVOUS SYSTEM: No focal deficits, tone is normal in all 4 extremities. EXTREMITIES: There is no peripheral edema. No clubbing, no cyanosis. Peripheral pulses are intact. - Labs CBC & Chem 7: 10/01/23 06:00 10/01/23 06:00 Labs: Abnormal Lab Results - Last 24 Hours (Table) 09/30/23 10/01/23 10/01/23 Range/Units 17:09 06:00 06:00 WBC 14.31 H (4.50-10.00) X 10*3/uL RDW 14.6 H (11.5-14.5) % Immature Gran # 0.08 H (0.00-0.04) X 10*3/uL Neutrophils # 11.72 H (1.80-7.70) X 10*3/uL Eosinophils # 0 L (0.04-0.35) X 10*3/uL Carbon Dioxide 21 L (22-30) mmol/L Anion Gap 15.30 H (4.00-12.00) mmol/L Glucose 139 H 155 H (74-99) mg/dL Albumin/Globulin Ratio 1.47 L (1.60-3.17) Ratio Assessment and Plan Assessment: Acute exacerbation of chronic mild intermittent bronchial asthma. Chest x-ray shows no acute process. Viral screen negative Chronic and ongoing tobacco dependence History of marijuana use History of bipolar disorder Plan: The patient was seen and evaluated Labs and medications reviewed Cleared for discharge from the pulmonary standpoint Recommend Symbicort, albuterol HFA Complete a prednisone taper Continue on Singulair Social work consult regarding ability to pay for medications Educated regarding complete smoking cessation Encouraged follow-up in our office in 1 week This patient was seen independently by the pulmonary nurse practitioner addressing pulmonary issues I have personally seen and examined the patient, performed the documentation and the assessment and plan as written. Number of minutes spent on the visit: 22.
[2023-10-01 12:55] VITALS: PULSE 98
--- NOTE | 2023-10-01 13:48 | P.DS ---
Providers Date of admission: 09/30/23 07:27 Expected date of discharge: 10/01/23 Attending physician: Yolette Sewell DO Consults: 09/30/23 06:46 Consult Physician Routine Consulting Provider: Hailey Ruano Consult Reason/Comments: asthma exacerbation Do you want consulting provider notified?: Yes Primary care physician: Stated None Hospital Course: Asthma exacerbation Acute hypoxemic respiratory failure Hypertensive urgency 27-year-old with medical history of asthma presented for evaluation of dyspnea. Patient says that his dyspnea started again this morning and did not improve despite his rescue inhaler. Upon evaluation, patient was afebrile, 158/102, heart rate 100, 98% on 2 L nasal cannula. CBC did demonstrate mildly elevated eosinophils at 1.1. Basic metabolic panel was unremarkable. Influenza A, B, RSV, COVID were negative. Liver function test are unremarkable. Chest x-ray is personally interpreted, shows normal-sized heart, clear parenchyma bilaterally without any opacities or consolidations. Patient was started on Solu-Medrol, nebulizers, Singulair and admitted to observation. Pt was evaluated and cleared by pulmonology and improved back to room air. He was discharged home with symbicort, prednisone, albuterol, singulair, and PCP referral. I spent 32 minutes coordinating this discharge Gen: in no apparent distress, resting comfortably in bed Eyes: PERRL, no scleral injection or icterus HENT: normocephalic, atraumatic, good hearing acuity, moist mucous membranes Neck: no tracheal deviation, full range of motion Resp: good air exchange, breathing comfortably with no accessory muscle use, no tactile fremitus, diffuse end expiratory wheezing CVS: good distal perfusion x 4, no pitting edema GI: soft, NTTP, ND, no hepatosplenomegaly : no suprapubic tenderness, no CVAT, rodríguez catheter not present MSK: no clubbing, no cyanosis, no noted contractures of extremities Skin: no noted rashes, petechiae; temperature of skin is appropriate Neuro: moving all extremities without signs of weakness, CN II-XII intact Psych: cooperative, euthymic mood, insight and judgment intact Patient Condition at Discharge: Good Plan - Discharge Summary New Discharge Prescriptions: New predniSONE [Deltasone] 40 mg PO DAILY #8 tab Montelukast [Singulair] 10 mg PO HS #30 tab Budesonide/Formoterol Fumarate [Symbicort 80-4.5 Mcg Inhaler] 1 puff INHALATION BID #10.2 gm Albuterol Inhaler [Ventolin Hfa Inhaler] 1 - 2 puff INHALATION Q6H PRN #1 each PRN Reason: Dyspnea Discharge Medication List Albuterol Inhaler [Ventolin Hfa Inhaler] 1 - 2 puff INHALATION Q6H PRN #1 each 10/01/23 [Rx] Budesonide/Formoterol Fumarate [Symbicort 80-4.5 Mcg Inhaler] 1 puff INHALATION BID #10.2 gm 10/01/23 [Rx] Montelukast [Singulair] 10 mg PO HS #30 tab 10/01/23 [Rx] predniSONE [Deltasone] 40 mg PO DAILY #8 tab 10/01/23 [Rx] Follow up Appointment(s)/Referral(s): Milagros Faust MD [REFERRING] - 1 Week None,Stated [Primary Care Provider] - 1-2 days Discharge Disposition: HOME SELF-CARE
== END 2023-10-01 14:34 | disposition home or self-care (01) ==
LOC: EC 05:51 → 6NMEDSUR 07:27
PROVIDERS: ADMIT Internal Medicine; ATTEND Internal Medicine
DX: J45.21 Mild intermittent asthma with (acute) exacerbation (principal); J96.01 Acute respiratory failure with hypoxia; I16.0 Hypertensive urgency; I10 Essential (primary) hypertension; F31.9 Bipolar disorder, unspecified; F12.90 Cannabis use, unspecified, uncomplicated; F17.200 Nicotine dependence, unspecified, uncomplicated; Z91.199 Patient's noncompliance with other medical treatment and regimen due to unspecified reason; Z11.52 Encounter for screening for COVID-19; Z11.59 Encounter for screening for other viral diseases; Z91.048 Other nonmedicinal substance allergy status
CPT/HCPCS: 96376 ×2; 96361 ×2; 96365; 96375; 99285; 36415; 94640 ×4; 94760 ×2; 80053 ×2; 80048; 85025 ×2; 87636; 71046; G0378 ×2; J2930 ×2; J3475

== ENCOUNTER 2024-10-23 02:04 | Emergency (ER) | payer OTHER ==
[2024-10-23 02:12] VITALS: TEMP 98.2
--- NOTE | 2024-10-23 02:37 | ED ---
General Adult HPI - General Source: patient, RN notes reviewed Mode of arrival: ambulatory <Dariela Wilson - Last Filed: 10/23/24 04:04> <Eri Faria - Last Filed: 10/23/24 18:32> - General Chief complaint: Shortness of Breath Stated complaint: Asthma difficulty breathing Time Seen by Provider: 10/23/24 02:20 - History of Present Illness Initial comments: 29-year-old male presents to the emergency department for evaluation of shortnes s of breath. Patient has a history of asthma and states that his started experiencing some difficulty breathing around 4 PM yesterday afternoon. He notes that he has inhalers at home but he does not have a nebulizer machine. He currently does not have a primary care provider as he is been moving around frequently. He denies any cough, congestion. Denies any recent fever, chills. (Dariela Wilson) - Related Data Previous Rx's Medication Instructions Recorded Albuterol Inhaler [Ventolin Hfa 1 - 2 puff INHALATION Q6H PRN #1 10/23/24 Inhaler] each predniSONE 50 mg PO DAILY #5 tab 10/23/24 Allergies Allergy/AdvReac Type Severity Reaction Status Date / Time grass pollen-perennial rye, Allergy Rash/Hives Verified 10/23/24 02:12 standar [grass poll-perennial rye,std] Review of Systems ROS Other: All systems not noted in ROS Statement are negative. <Dariela Wilson - Last Filed: 10/23/24 04:04> ROS Other: All systems not noted in ROS Statement are negative. <Eri Faria - Last Filed: 10/23/24 18:32> ROS Statement: Those systems with pertinent positive or pertinent negative responses have been documented in the HPI. Past Medical History Past Medical History: Asthma, Hypertension History of Any Multi-Drug Resistant Organisms: None Reported Past Surgical History: No Surgical Hx Reported Past Anesthesia/Blood Transfusion Reactions: No Reported Reaction Past Psychological History: Bipolar Smoking Status: Never smoker Past Alcohol Use History: Rare Past Drug Use History: Marijuana <Dariela Wilson - Last Filed: 10/23/24 04:04> General Exam Limitations: no limitations General appearance: alert, in no apparent distress Head exam: Present: atraumatic, normocephalic, normal inspection Eye exam: Present: normal appearance, PERRL, EOMI. Absent: scleral icterus, conjunctival injection, periorbital swelling ENT exam: Present: normal exam, mucous membranes moist Respiratory exam: Present: wheezes Cardiovascular Exam: Present: regular rate, normal rhythm, normal heart sounds. Absent: systolic murmur, diastolic murmur, rubs, gallop, clicks Extremities exam: Present: normal inspection, full ROM, normal capillary refill. Absent: tenderness, pedal edema, joint swelling, calf tenderness Back exam: Present: normal inspection Neurological exam: Present: alert, oriented X3 Psychiatric exam: Present: normal affect, normal mood <Dariela Wilson - Last Filed: 10/23/24 04:04> Course Vital Signs 10/23/24 10/23/24 10/23/24 02:10 03:14 03:24 Temperature 98.2 F Pulse Rate 76 66 61 Respiratory 22 Rate Blood Pressure 150/111 O2 Sat by Pulse 97 Oximetry 10/23/24 10/23/24 10/23/24 04:27 04:52 05:11 Temperature Pulse Rate 88 67 70 Respiratory 16 Rate Blood Pressure 137/97 O2 Sat by Pulse 97 Oximetry 10/23/24 10/23/24 05:36 06:18 Temperature Pulse Rate 68 Respiratory 16 Rate Blood Pressure O2 Sat by Pulse 100 Oximetry Medical Decision Making - Lab Data Result diagrams: 10/23/24 03:02 10/23/24 03:02 <Dariela Wilson - Last Filed: 10/23/24 04:04> - Lab Data Result diagrams: 10/23/24 03:02 10/23/24 03:02 <Eri Faria - Last Filed: 10/23/24 18:32> - Medical Decision Making Was pt. sent in by a medical professional or institution (, PA, TIMING INSPECTOR, urgent care, hospital, or group home...) When possible be specific @ -No Did you speak to anyone other than the patient for history (EMS, parent, family, police, friend...)? What history was obtained from this source @ -No Did you review nursing and triage notes (agree or disagree)? Why? @ -I reviewed and agree with nursing and triage notes Were old charts reviewed (outside hosp., previous admission, EMS record, old EKG, old radiological studies, urgent care reports/EKG's, group home records)? Report findings @ -No old charts were reviewed Differential Diagnosis (chest pain, altered mental status, abdominal pain women, abdominal pain men, vaginal bleeding, weakness, fever, dyspnea, syncope, headache, dizziness, GI bleed, back pain, seizure, CVA, palpatations, mental health, musculoskeletal)? @ -Differential Dyspnea: Coronary syndrome, arrhythmia, tamponade, asthma, COPD, pulmonary embolism, pneumonia, pneumothorax, pulmonary effusion, anaphylaxis, diabetic ketoacidosis, flailed chest, pulmonary contusion, diaphragmatic rupture, anemia, neuromuscular, this is not meant to be an all-inclusive list. EKG interpreted by me (3pts min.). @ -EKG at sinus rhythm rate 75, TX 169, QRS 90, QT/QTc 495450 X-rays interpreted by me (1pt min.). @ -Chest x-ray pending CT interpreted by me (1pt min.). @ -None done U/S interpreted by me (1pt. min.). @ -None done What testing was considered but not performed or refused? (CT, X-rays, U/S, labs)? Why? @ -None What meds were considered but not given or refused? Why? @ -None Did you discuss the management of the patient with other professionals (professionals i.e. , PA, TIMING INSPECTOR, lab, RT, psych nurse, director of social services, motor power connector, teacher, equal employment opportunity officer, gearcase assembler)? Give summary @ -No Was smoking cessation discussed for >3mins.? @ -No Was critical care preformed (if so, how long)? @ -No Were there social determinants of health that impacted care today? How? (Homelessness, low income, unemployed, alcoholism, drug addiction, transportation, low edu. Level, literacy, decrease access to med. care, intermediate, rehab)? @ -No Was there de-escalation of care discussed even if they declined (Discuss DNR or withdrawal of care, Hospice)? DNR status @ -No What co-morbidities impacted this encounter? (DM, HTN, Smoking, COPD, CAD, Canc er, CVA, ARF, Chemo, Hep., AIDS, mental health diagnosis, sleep apnea, morbid obesity)? @ -None Was patient admitted / discharged? Hospital course, mention meds given and route, prescriptions, significant lab abnormalities, going to OR and other pertinent info. @ -Patient presented emergency department for evaluation shortness of breath. Has a history of asthma and feels that this is an exacerbation of his asthma. He reports using his inhalers at home without relief. This prompted his prese ntation to the emergency department. Laboratory studies were obtained there is no significant leukocytosis; normal coagulation studies; CMP unactionable at this time. Patient was administered a DuoNeb treatment and additional treatments were ordered and pending. The case was discussed with Dr. Faria who will follow-up on the patient. Undiagnosed new problem with uncertain prognosis? @ -No Drug Therapy requiring intensive monitoring for toxicity (Heparin, Nitro, Insulin, Cardizem)? @ -No Were any procedures done? @ -No Diagnosis/symptom? @ -Asthma exacerbation Acute, or Chronic, or Acute on Chronic? @ -Acute Uncomplicated (without systemic symptoms) or Complicated (systemic symptoms)? @ -Uncomplicated Side effects of treatment? @ -No Exacerbation, Progression, or Severe Exacerbation? @ -No Poses a threat to life or bodily function? How? (Chest pain, USA, NC, pneumonia, PE, COPD, DKA, ARF, appy, cholecystitis, CVA, Diverticulitis, Homicidal, Suicidal, threat to staff... and all critical care pts) @ -No (Dariela Wilson) Patient was presented to and signed out to myself by physician assistant men's lacrosse coach Dariela. Agree with plan of care as written above. Patient was signed out pending completion of nebulizer treatments. On my assessment he is starting his third nebulizer treatment. On auscultation of his lungs he does have wheezes in the bilateral lower and midlung ortiz, is breathing comfortably. He states that his symptoms are already improving. Anticipate discharge. Will reassess after completion of nebulizer treatment. On reassessment lung sounds are greatly improved, he does have scant wheezes but otherwise excellent air movement bilaterally. Patient feels ready for discharge home. He will be discharged home with a prescription for an albuterol inhaler and a course of steroids. In my medical judgment there is currently no evidence of an immediate life- threatening or surgical condition. Discharge is therefore indicated at this t aisha. Discharge treatment instructions, follow up instructions, and appropriate emergency department return precautions were discussed with the patient and/or medical decision maker. Patient and/or medical decision maker expressed understanding of and agreed with the treatment plan, follow up instructions, and emergency department return precaution. All patient's and/or medical decision maker's questions were answered. The patient was instructed to return to the ED for any changes in symptoms, persistent symptoms, inability to obtain proper follow-up or for any further concerns. Patient received verbal and written instructions for this condition. (,Eri) - Lab Data Lab Results 10/23/24 10/23/24 10/23/24 Range/Units 03:02 03:02 03:02 WBC 7.2 (3.8-10.6) k/uL RBC 5.16 (4.30-5.90) m/uL Hgb 14.3 (13.0-17.5) gm/dL Hct 47.2 (39.0-53.0) % MCV 91.5 (80.0-100.0) fL MCH 27.8 (25.0-35.0) pg MCHC 30.3 L (31.0-37.0) g/dL RDW 13.8 (11.5-15.5) % Plt Count 228 (150-450) k/uL MPV 8.0 Neutrophils % 45 % Lymphocytes % 42 % Monocytes % 7 % Eosinophils % 4 % Basophils % 1 % Neutrophils # 3.2 (1.3-7.7) k/uL Lymphocytes # 3.0 (1.0-4.8) k/uL Monocytes # 0.5 (0-1.0) k/uL Eosinophils # 0.3 (0-0.7) k/uL Basophils # 0.1 (0-0.2) k/uL PT 11.0 (10.0-12.5) sec INR 1.0 (<1.2) APTT 25.4 (22.0-30.0) sec Sodium 138 (137-145) mmol/L Potassium 3.5 (3.5-5.1) mmol/L Chloride 102 (98-107) mmol/L Carbon Dioxide 26 (22-30) mmol/L Anion Gap 10 mmol/L BUN 21 H (9-20) mg/dL Creatinine 0.93 (0.66-1.25) mg/dL Est GFR (CKD-EPI)AfAm >90 (>60 ml/min/1.73 sqM) Est GFR (CKD-EPI)NonAf >90 (>60 ml/min/1.73 sqM) Glucose 96 (74-99) mg/dL Calcium 9.3 (8.4-10.2) mg/dL Total Bilirubin 0.5 (0.2-1.3) mg/dL AST 24 (17-59) U/L ALT 17 (4-49) U/L Alkaline Phosphatase 56 (38-126) U/L Total Protein 7.5 (6.3-8.2) g/dL Albumin 4.6 (3.5-5.0) g/dL Disposition <Dariela Wilson - Last Filed: 10/23/24 04:04> Is patient prescribed a controlled substance at d/c from ED?: No <Eri Faria - Last Filed: 10/23/24 18:32> Clinical Impression: Asthma exacerbation Disposition: HOME SELF-CARE Condition: Good Instructions (If sedation given, give patient instructions): Asthma (ED) Additional Instructions: Every disease is a spectrum and a small chance still exists that a serious con dition could develop, for this reason, please monitor yourself closely for new, changing or worsening symptoms, that do not continue to improve after 48 hours, using your inhaler more than once an hour without improvement of symptoms or using it every hour for greater than 2 hours without improvement, coughing up thick sputum, chest pain, no relief of symptoms while using your inhaler, fever, inability to tolerate/keep down fluids or your medications, inability to follow up with outpatient providers as instructed and should you experience these symptoms or should you have any further concerns for your wellbeing please return to the ED or call 911 immediately. PLEASE call your primary care physician as soon as possible to arrange / discuss plan for followup appointment. Appointment in the next 1-3 days is strongly encouraged if possible. PLEASE let us know here before you leave if there is anything further we can do to be of any assistance. Take care and feel Better! Prescriptions: predniSONE 50 mg PO DAILY #5 tab Albuterol Inhaler [Ventolin Hfa Inhaler] 1 - 2 puff INHALATION Q6H PRN #1 each PRN Reason: Shortness Of Breath Referrals: None,Stated [Primary Care Provider] - 1-2 days Forms: Area PCPs
[2024-10-23] MEDS: IPRATROPIUM-ALBUTEROL 3 ML NEB INHALATION STA (03:12)
[2024-10-23] MEDS: methylPREDNISolone SOD SUCCI 125 MG/2 ML VIAL IV STA (03:14)
[2024-10-23 03:16] LABS: Basophils # (A) 0.1 k/uL (0-0.2); Basophils % (A) 1 %; Eosinophils # (A) 0.3 k/uL (0-0.7); Eosinophils % (A) 4 %; HCT 47.2 % (39.0-53.0); HGB 14.3 gm/dL (13.0-17.5); Lymphocytes % (A) 42 %; MCH 27.8 pg (25.0-35.0); MCHC 30.3 g/dL (31.0-37.0); MCV 91.5 fL (80.0-100.0); Monocytes # (A) 0.5 k/uL (0-1.0); Monocytes % (A) 7 %; Neutrophils # (A) 3.2 k/uL (1.3-7.7); Neutrophils % (A) 45 %; Platelet Count 228 k/uL (150-450); RBC 5.16 m/uL (4.30-5.90); RDW 13.8 % (11.5-15.5); WBC 7.2 k/uL (3.8-10.6)
[2024-10-23 03:20] LABS: Partial Thromboplastin Time 25.4 sec (22.0-30.0)
[2024-10-23 04:00] LABS: ALT 17 U/L (4-49); AST 24 U/L (17-59); African American GFR (CKD) >90 (>60 ml/min/1.73 sqM); Albumin 4.6 g/dL (3.5-5.0); Alkaline Phosphatase 56 U/L (38-126); Anion Gap 10 mmol/L; Blood Urea Nitrogen 21 mg/dL (9-20); Calcium 9.3 mg/dL (8.4-10.2); Carbon Dioxide 26 mmol/L (22-30); Chloride 102 mmol/L (98-107); Glucose 96 mg/dL (74-99); Non-African American GFR(CKD) >90 (>60 ml/min/1.73 sqM); Potassium 3.5 mmol/L (3.5-5.1); Sodium 138 mmol/L (137-145); Total Bilirubin 0.5 mg/dL (0.2-1.3); Total Protein 7.5 g/dL (6.3-8.2)
[2024-10-23 04:28] VITALS: BP 137/97; RESP 16
[2024-10-23] MEDS: IPRATROPIUM 0.5 MG/2.5 ML NEBU INHALATION STA (04:50)
[2024-10-23] MEDS: ALBUTEROL NEBULIZED 2.5 MG/3 ML INHALATION SCH (04:51)
--- NOTE | 2024-10-23 05:25 | XR ---
EXAM: XR Chest, 2 Views CLINICAL HISTORY: ITS.REASON XR Reason: difficulty breathing TECHNIQUE: Frontal and lateral views of the chest. COMPARISON: No relevant prior studies available. FINDINGS: Lungs: Unremarkable. No consolidation. Pleural space: Unremarkable. No pneumothorax. Heart: Unremarkable. No cardiomegaly. Mediastinum: Unremarkable. Bones/joints: Unremarkable. IMPRESSION: Normal chest x-rays.
[2024-10-23 05:37] VITALS: PULSE 68
== END 2024-10-23 06:18 | disposition home or self-care (01) ==
LOC: EC 02:04
DX: J45.901 Unspecified asthma with (acute) exacerbation (principal); Z88.8 Allergy status to other drugs, medicaments and biological substances
CPT/HCPCS: 36415; 94640 ×2; 93005; 80053; 85025; 85610; 85730; 71046; 99285; 96374; J2919